=== PATIENT | female | born 1990 | race Caucasian/White ===

== ENCOUNTER 2016-12-18 16:39 | Inpatient (IN) | payer BC, OTHER ==
[~2016-12-18] VITALS: Ht 170.2 cm; Wt 108.9 kg
[~2016-12-18 16:39] MED LIST: CLON0.1T14 PO; DICY20TA28 PO; Gabapentin PO; HYDR-3895 PO; HYDR50CA5 PO; Ibuprofen PO; LITH300T PO
[2016-12-18] MEDS ORDERED: LOPERAMIDE HCL 2 MG CAPSULE PO PRN ×2 (18:15)
[2016-12-18] MEDS ORDERED: ONDANSETRON ODT 4 MG TAB.RAPDIS SL PRN (18:15)
[2016-12-18] MEDS ORDERED: PROMETHAZINE HCL 25 MG/1 ML VIAL IM PRN (18:15)
[2016-12-18] MEDS ORDERED: BUPRENORPHINE HCL 2 MG TAB.SUBL SL PRN (18:15)
[2016-12-18] MEDS ORDERED: diphenhydrAMINE 50 MG CAPSULE PO PRN (18:15)
[2016-12-18] MEDS ORDERED: MAGNESIUM HYDROXIDE 30 ML LIQUID UDC PO PRN (18:15)
[2016-12-18] MEDS ORDERED: MIRALAX 17 GM POWD.PACK PO PRN (18:15)
[2016-12-18] MEDS ORDERED: MAG HYDROX/AL HYDROX/SIMETH 30 ML LIQUID UDC PO PRN (18:15)
[2016-12-18] MEDS ORDERED: LORAZEPAM 1 MG TABLET PO PRN ×2 (18:30)
[2016-12-18] MEDS ORDERED: LORAZEPAM 2 MG/1 ML VIAL IM PRN (18:30)
[2016-12-18] MEDS ORDERED: TRAZ300T2 PO (18:45)
[2016-12-18] MEDS ORDERED: L-NO1TBD18 PO (18:45)
[2016-12-18] MEDS ORDERED: LITH300T3 PO (18:45)
[2016-12-18 18:48] LABS: *URINE HCG, QUAL NEGATIVE (NEGATIVE)
[2016-12-18 19:03] LABS: *AMPHETAMINE, URINE NEGATIVE (NEGATIVE); *BARBITURATE, URINE NEGATIVE (NEGATIVE); *CANNABINOID, URINE POSITIVE (NEGATIVE); *COCCAINE, URINE NEGATIVE (NEGATIVE); *OPIATE, URINE POSITIVE (NEGATIVE); *PHENCYCLIDINE SCREEN,URINE NEGATIVE (NEGATIVE)
[2016-12-18 20:00] VITALS: BP 117/66
--- NOTE | 2016-12-18 20:00 | NUR ---
ADMISSION NOTE Pt arrived to [facility] 3rd floor (accompanied by [facility] staff) at approximately 1830 on 12/18/16. Pt is a 26 y/o female (born on 1990) being admitted for Heroin, Methamphetamines, and Marijuana dependence and use. Pt has allergies to Ceftriaxone and Ondansetron and reported a PMH of bipolar and seizure related to ETOH withdrawal (last year). Pt is unmarried and without children. Pt stated " I live in a sober living. My highest level of education is college, but I don't have a job right now. " Pt was then asked about her substance history including; frequency, amount, route, duration of use, date of last use and amount last used. Pt stated " I've been using Heroin, Meth, and Marijuana for the past 3 weeks. I first started using Heroin 3 years ago. I use needles. I usually inject up to 2 grams a day. The last time I had Heroin was early in the morning (12/18/16). I used about 0.3 grams. I only use Meth occasionally, and it's never a lot. I snort lines, but I don't use needles for that. The last time I had meth was Sunday(12/16/16). I snorted 1 line, which was probably like 1/4 of a gram. I've been smoking marijuana on and off for 12 years. I take a couple of hits from a joint. The last time I smoked was before I came here. I took to hits of the joint and that was it. I also took 3000 mg of Gabapentin today before I came, but I don't abuse that, I just use it to help me detox." Pt was then asked about her treatment history. Pt replied " I was in [facility] for 3 months before that I was in [place] and here." Pt arrived with medication. Noted and reconciled. Upon assessment pt is a/o x 4 with no changes in LOC. Pt is seemingly uncooperative with a flat affect, but can be redirected. Pt's skin is dry and intact with no lesions, bruises, lacerations, rashes or abrasions noted. Pt has multiple facial piercings, but none have any redness, swelling or drainage. Skin turgor indicates adequate hydration. No observable sweat noted. PERRLA noted. Pt's breathing is even and unlabored. No SOB noted or reported. Lung auscultations clear in all lobes. Abdomen is soft and non distended. Bowel sounds present in all four quadrants, however the pt reported having her last bowel movement on 12/15/16. Pt declined any PRN medication for constipation at this time, but was encouraged to increase fluids and notify staff of any changes in condition. Hand forensic anthropologist strong bilaterally. Pt stands at 5 feet 7 inches and weighs in at 240 pounds via standing scale. BP: 117/66 P:75 T:98.6 R:16 Oxygen Sat: 99 % pain: 0/10 COW: 2. MD aware of pt's arrival. All safety measures in place; side rails up x 2 , bed locked and in low position, and call light within reach. Will continue to monitor. Addendum: 12/19/16 at 1954 by SHIKHA SERNA LVN Pt denies having a Primary care physician or psych doctor at this time.
[2016-12-18 20:19] LABS: BASOPHILS # (AUTO) 0.2 K/uL (0.0-0.2); BASOPHILS % (AUTO) 2.2 % (0.0-2.0); EOSINOPHILS # (AUTO) 0.1 K/uL (0.0-0.7); EOSINOPHILS % (AUTO) 0.8 % (0.0-7.0); HEMATOCRIT 41.1 % (37.0-47.0); HEMOGLOBIN 13.6 g/dL (12.0-16.0); MEAN CORPUSCULAR HEMOGLOBIN 28.1 uug (27.0-31.0); MEAN CORPUSCULAR HGB CONC 33 g/dL (32.0-37.0); MEAN CORPUSCULAR VOLUME 85.1 fL (81.0-99.0); MONOCYTES # (AUTO) 0.5 K/uL (0.1-1.30); MONOCYTES % (AUTO) 5.4 % (0.0-11.0); NEUTROPHILS # (AUTO) 6.8 K/uL (1.8-8.9); NEUTROPHILS % (AUTO) 80.6 % (38.5-71.5); PLATELET COUNT (AUTO) 289 K/uL (150-450); RED BLOOD CELL COUNT(AUTO) 4.84 MIL/uL (4.20-5.40); RED CELL DISTRIBUTION WIDTH 11.9 % (11.5-14.5); WHITE BLOOD COUNT (AUTO) 8.6 K/uL (4.0-11.2)
[2016-12-18 20:32] LABS: ETHANOL < 3 MG/DL (0-0)
[2016-12-18 20:33] LABS: ALANINE AMINOTRANSFERASE 23 U/L (14-59); ALBUMIN 3.2 g/dL (3.4-5.0); ALKALINE PHOSPHATASE 45 U/L (50-136); ASPARTATE AMINOTRANSFERASE 21 U/L (15-37); BILIRUBIN,TOTAL 0.6 mg/dL (0.2-1.0); CALCIUM 8.9 mg/dL (8.5-10.1); CARBON DIOXIDE 25 mmol/L (21-32); CHLORIDE 104 mmol/L (98-107); CREATININE 1.1 mg/dL (0.6-1.3); GFR 60 mL/min (>60); GLUCOSE 93 mg/dL (74-106); MAGNESIUM 1.5 mg/dL (1.8-2.4); POTASSIUM 3.7 mmol/L (3.5-5.1); SODIUM SERUM 140 mmol/L (136-145); TOTAL PROTEIN, SERUM 7.1 g/dL (6.4-8.2); UREA NITROGEN, BLOOD 7 mg/dL (7-18)
[2016-12-18 20:55] LABS: HIV-1 p24 ANTIGEN NON REACTIVE (NONREACTIVE); HIV-1/2 ANTIBODY NON REACTIVE (NONREACTIVE)
[2016-12-18] MEDS: GABAPENTIN 300 MG CAPSULE PO SCH (21:00)
[2016-12-18] MEDS ORDERED: MAGNESIUM OXIDE 400 MG TABLET PO ONE (21:15)
[2016-12-18] MEDS: METHOCARBAMOL 750 MG TABLET PO PRN (21:50)
[2016-12-18] MEDS: ACETAMINOPHEN 325 MG TABLET PO PRN (21:50)
--- NOTE | 2016-12-18 21:50 | NUR ---
TYLENOL AND ROBAXIN PRN ADMINISTRATION Pt stated " I'm having generalized body pain and my muscles are super sore. Can I have some Tylenol and Robaxin?" Tylenol 650 mg PO PRN and Robaxin 750 mg PO PRN was given. Pt was encouraged to notify staff of any changes in condition or of any further concerns. Pt verbalized an understanding. All safety measures in place. Will monitor for effectiveness.
--- NOTE | 2016-12-18 22:50 | NUR ---
TYLENOL AND ROBAXIN PRN REASSESSMENT Pt stated " I feel okay." PRNS effective. Pt is encouraged to notify staff of any changes in condition or of any concerns. Pt verbalized an understanding. All safety measures in place. Will continue to monitor.
[2016-12-19] VITALS: BP 128/65
[2016-12-19] MEDS: CLONIDINE HCL 0.1 MG TABLET PO PRN ×2 (00:43→11:11)
[2016-12-19] MEDS: HYDROXYZINE PAMOATE 25 MG CAPSULE PO PRN ×2 (00:43→08:59)
[2016-12-19] MEDS: IBUPROFEN 600 MG TABLET PO PRN ×2 (00:43→08:59)
--- NOTE | 2016-12-19 00:43 | NUR ---
CLONIDINE, MOTRIN, VISTARIL, AND BENADRYL PRN ADMINISTRATION Pt stated " I need something else. I'm sore all over again, and I'm just really kicking." Upon assessment Pt's COW score was 9. Pt was offered PRNS to accommodate current circumstances. With pt's consent Clonidine 0.1 mg PO PRN, Motrin 600 mg PO PRN, Vistaril 50 mg PO PRN, and Benadryl 50 mg PO PRN was given. Pt was encouraged to notify staff of any changes in condition or of any further concerns. Pt verbalized an understanding. All safety measures in place. Will monitor for effectiveness.
--- NOTE | 2016-12-19 01:45 | NUR ---
CLONIDINE, MOTRIN, VISTARIL, AND BENADRYL PRN REASSESSMENT Pt is asleep in bed with no signs of discomfort/distress noted. Pt's breathing is even and unlabored. Respirations are 14 breaths per minute. PRNS effective. All safety measures in place. Will continue to monitor.
[2016-12-19 04:11] VITALS: BP 95/48
[2016-12-19] MEDS: METHOCARBAMOL 750 MG TABLET PO PRN ×2 (06:34→16:50)
--- NOTE | 2016-12-19 06:42 | NUR ---
ROBAXIN PRN ADMINISTRATION Pt stated " Can I some Robaxin. My muscles are sore. Robaxin 750 mg PO PRN was given. Pt was encouraged to notify staff of any changes in condition or of any concerns. Pt verbalized an understanding. All safety measures in place. Will endorse to oncoming nurse.
--- NOTE | 2016-12-19 07:12 | NUR ---
END OF SHIFT NOTE Pt is a 29 y/o female admitted on 12/18/16 for Heroin, Methamphetamines, and Marijuana dependence and use. Pt has an allergy to Ceftriaxone and Ondansetron and reported a PMH of bipolar and seizure (r/t ETOH w/d). Pt is scheduled to start a 3 day Subutex taper today. Pt received Tylenol 650 mg PO PRN, Robaxin 750 mg PO PRN x2 , Motrin 600 mg PO PRN, Vistaril 50 mg PO PRN, Clonidine 0.1 mg PO PRN, and Benadryl 50 mg PO PRN during the shift. Last COW: 2 (0400). Pt slept for a total of 4 hours. All safety measures in place; side rails up x2, bed locked and in low position, and call light within reach. Endorsed to the oncoming nurse.
--- NOTE | 2016-12-19 07:15 | NUR ---
Start of Shift Report from the night nurse: pt is a 26 y.o female here for Heroin 2g IV/d, Marijuana Smoked occasionally, Methamphetamine 0.25g snorted /d; 3 day Subutex taper ordered. Pt is a full code, regular diet, allergic to ceftriaxone, and ondansetron, fall and seizure precautions ordered. HHx: Bipoal and seizure r/t Etoh w/d and multiple relapses. V/S stable. Mag lab is 1.5 with supplement given. Last COWS 2. No new orders or recommendations by the night nurse. Pt is asleep is room. Will cont. to monitor the pt.
[2016-12-19 08:00] VITALS: BP 107/63
[2016-12-19] MEDS: GABAPENTIN 300 MG CAPSULE PO SCH ×3 (08:59→21:15)
[2016-12-19] MEDS: BUPRENORPHINE HCL 2 MG TAB.SUBL SL SCH ×2 (08:59→21:18)
[2016-12-19] MEDS: MULTIVITAMINS,THERAPEUTIC TABLET PO SCH (09:00)
[2016-12-19] MEDS ORDERED: TUBERCULIN,PURIF.PROT.DERIV. 5 TU/0.1 ML TEST ID ONE (09:00)
--- NOTE | 2016-12-19 09:00 | NUR ---
PRN Medication Administration Pt is in room restless in bed and anxious with generalized pain 6/10 and slight MORRELL; PRN Vistaril 50mg and PRN Ibuprofen 600mg given as ordered with 0900 scheduled meds. Will reassess 1H.
--- NOTE | 2016-12-19 10:00 | NUR ---
Reassessment Pt is resting in room watching T.V. with decreased anxiety and denies pain; PRN's Vistaril and Motrin are effective. Will cont. to monitor the pt.
--- NOTE | 2016-12-19 11:10 | NUR ---
PRN administration Pt c/o a headache and chills. Administered tylenol and clonidine per MD order. BP is 117/75 HR 82. Primary nurse to follow up. All other needs addressed at this time.
[2016-12-19] MEDS: ACETAMINOPHEN 325 MG TABLET PO PRN (11:11)
[2016-12-19 12:00] VITALS: BP 109/46
--- NOTE | 2016-12-19 15:08 | NUR ---
New Orders New orders for scheduled [place] & Trazodone and PRN Benadryl.
[2016-12-19] MEDS: PATIENT MAY USE OWN MED- MD OK PO SCH ×2 (15:20→21:18)
[2016-12-19 16:00] VITALS: BP 102/57
[2016-12-19] MEDS: DICYCLOMINE HCL 20 MG TABLET PO PRN (16:50)
--- NOTE | 2016-12-19 16:51 | NUR ---
PRN Medication Administration Pt c/o mild ab pain with muscle tension; PRN Bentyl 20mg and Robaxin 750mg given as ordered. Will reassess in 1H.
--- NOTE | 2016-12-19 19:30 | NUR ---
End of Shift Report to the night nurse: pt is a 26 y.o female here for Heroin 2g IV/d, Marijuana Smoked occasionally, Methamphetamine 0.25g snorted /d; 3 day Subutex taper ordered. Pt is a full code, regular diet, allergic to ceftriaxone, and ondansetron, fall and seizure precautions ordered. HHx: Bipolar and seizure r/t Etoh w/d and multiple relapses. V/S stable. Mag lab is 1.5 with supplement given. PRN Bentyl, Robaxin, Vistaril, Motrin, Clonidine and Tylenol given during my shift. New Orders for [place] trazodone and Benadryl endorsed to the night nurse. Pt attended group therapy today. Last COWS 5.
--- NOTE | 2016-12-19 19:38 | NUR ---
START OF SHIFT NOTE Pt is a 29 y/o female admitted on 12/18/16 for Heroin, Methamphetamines, and Marijuana dependence and use. Pt has an allergy to Ceftriaxone and Ondansetron and reported a PMH of bipolar and seizure (r/t ETOH w/d). Per day shift nurse pt started on 3 day Subutex taper and is tolerating medication well with no s/e or a/r reported. Pt received Tylenol 650 mg PO PRN, Robaxin 750 mg PO PRN , Motrin 600 mg PO PRN, Vistaril 50 mg PO PRN, Clonidine 0.1 mg PO PRN, and Bentyl 20 mg PO PRN during the day shift. Last COW: 5 (1600). At this time pt is calm, cooperative and compliant with plan of care. Pt denies any pain/discomfort at this time. Pt is encouraged to notify staff of any changes in condition or of any concerns. Pt verbalized an understanding. All safety measures in place; side rails up x2, bed locked and in low position, and call light within reach. Will continue to monitor.
[2016-12-19 20:00] VITALS: BP 106/50
[2016-12-19] MEDS ORDERED: LITHIUM CARBONATE 300 MG TABLET.SA PO SCH (21:00)
[2016-12-19] MEDS: TRAZODONE 100 MG TABLET PO SCH (21:15)
[2016-12-20] VITALS: BP 112/60
[2016-12-20] MEDS: DICYCLOMINE HCL 20 MG TABLET PO PRN ×2 (00:03→09:44)
[2016-12-20] MEDS: ACETAMINOPHEN 325 MG TABLET PO PRN ×5 (00:03→23:11)
--- NOTE | 2016-12-20 00:03 | NUR ---
TYLENOL AND BENTYL PRN ADMINISTRATION Pt stated " My stomach is cramping and I have a 5/10 headache. Can I have some Tylenol and Bentyl?" Tylenol 650 mg PO PRN and Bentyl was given. Pt was encouraged to notify staff of any changes in condition or of any further concerns Pt verbalized an understanding. All safety measures in place. Will monitor for effectiveness.
--- NOTE | 2016-12-20 01:00 | NUR ---
TYLENOL AND BENTYL PRN REASSESSMENT Pt stated " My head feels better. It wasn't that bad to begin with, but the Tylenol helped. My stomach feels better too." PRNS effective. Pt was encouraged to notify staff of any changes in condition or of any concerns. Pt verbalized an understanding. All safety measures in place. Will continue to monitor.
[2016-12-20] MEDS: HYDROXYZINE PAMOATE 25 MG CAPSULE PO PRN (02:05)
--- NOTE | 2016-12-20 02:05 | NUR ---
VISTARIL PRN ADMINISTRATION Pt stated " I'm feeling a little anxious and I think that's keeping me up." Vistaril 100 mg PO PRN was given. Pt was encouraged to notify staff of any changes in condition or of any further concerns. Pt verbalized an understanding. All safety measures in place. Will monitor for effectiveness.
--- NOTE | 2016-12-20 03:00 | NUR ---
VISTARIL PRN ADMINISTRATION Pt is asleep in bed with no signs of distress/discomfort noted. Pt's breathing is even and unlabored. Respirations are 14 breaths per minute. PRN effective. All safety measures in place. Will continue to monitor. Addendum: 12/20/16 at 0441 by SHIKHA SERNA LVN REASSESSMENT
--- NOTE | 2016-12-20 04:00 | NUR ---
COW AND VITALS REFUSED Pt refused to be assessed and have vitals taken at this time. Pt was encouraged x 3 with risks and benefits explained, but the client still declined. All safety measures in place. Will continue to monitor. Addendum: 12/20/16 at 0528 by SHIKHA SERNA LVN Amended: Links added.
--- NOTE | 2016-12-20 07:10 | NUR ---
Start of of the Shift Report from the night night nurse: pt is 26 year old new re-admit here for Heroin 0.5g/d smoked for 1 week with the last use last night at midnight and Xanax 6-8mg PO/d for 1 week; PRN Subutex and Ativan only. 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 PRN Ativan with CIWA 5, Tylenol and Trazodone given. V/S stable. Skin is intact. No hallucinations, delusions or suicidal ideations present. Pt did not attend group. TSH is elevated and is aware. Endorsed to night nurse to f/u with pt instructions and seizure precautions. Last COWS 7 CIWA 5.
--- NOTE | 2016-12-20 07:27 | NUR ---
END OF SHIFT NOTE Pt is a 29 y/o female admitted on 12/18/16 for Heroin, Methamphetamines, and Marijuana dependence and use. Pt has an allergy to Ceftriaxone and Ondansetron and reported a PMH of bipolar and seizure (r/t ETOH w/d). Pt continues on a 3 day Subutex taper today. Pt received Tylenol 650 mg PO PRN, Vistaril 100 mg PO PRN, and Bentyl 20 mg PO PRN during the shift. Last COW: 2 (0000). Pt slept for a total of 5 hours. All safety measures in place; side rails up x2, bed locked and in low position, and call light within reach. Endorsed to the oncoming nurse.
--- NOTE | 2016-12-20 07:30 | NUR ---
Start of Shift Report from the night night nurse: pt is 26 year old new re-admit here for Heroin 0.5g/d smoked for 1 week with the last use last night at midnight and Xanax 6-8mg PO/d for 1 week; PRN Subutex and Ativan only. 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 PRN Tylenol, Benadryl, and Vistaril given. V/S stable. Skin is intact. No hallucinations, delusions or suicidal ideations present. Last COWS 2.
[2016-12-20 08:00] VITALS: BP 109/60
[2016-12-20] MEDS: BUPRENORPHINE HCL 2 MG TAB.SUBL SL SCH ×3 (09:44→20:58)
[2016-12-20] MEDS: MULTIVITAMINS,THERAPEUTIC TABLET PO SCH (09:44)
[2016-12-20] MEDS: METHOCARBAMOL 750 MG TABLET PO PRN (09:44)
[2016-12-20] MEDS: GABAPENTIN 300 MG CAPSULE PO SCH ×3 (09:44→20:58)
[2016-12-20] MEDS: PROMETHAZINE HCL 25 MG TABLET PO PRN (09:44)
[2016-12-20 12:00] VITALS: BP 108/60
[2016-12-20] MEDS ORDERED: GUAIFENESIN LA 600 MG TABLET.SA PO PRN (12:15)
--- NOTE | 2016-12-20 12:15 | NUR ---
PRN Medication Administration Pt c/o Nausea, MORRELL, Muscle tension and Ab cramps; PRN Promethazine 25mg, Tylenol 650mg PO, Bentyl 20mg PO and Robaxin 750mg PO given as ordered. Will reassess in 1H. Will cont. to monitor the pt.
--- NOTE | 2016-12-20 13:10 | NUR ---
Reassessment Pt is in room taking a nap; no verbal or nonverbal s/sx of nausea, MORRELL, ab discomfort or muscle tension present. Will cont. to monitor the pt.
[2016-12-20 15:09] LABS: HCV AB <0.1 s/co ratio (0.0-0.9); HEPATITIS B CORE AB, IgM Negative (Negative); HEPATITIS B SURFACE AG Negative (Negative)
[2016-12-20 16:00] VITALS: BP 116/54
--- NOTE | 2016-12-20 16:57 | NUR ---
PRN Medication Administration, New Orders New orders for PRN Mucinex 600mg PO tid since pt c/o productive coughing, scheduled Clonidine 0.1mg and New orders from Dr. Baugh for [place] titration 12/21 at 0700am.
[2016-12-20] MEDS: DICYCLOMINE HCL 20 MG TABLET PO SCH ×2 (17:35→20:59)
[2016-12-20] MEDS: CLONIDINE HCL 0.1 MG TABLET PO SCH ×2 (17:35→21:01)
--- NOTE | 2016-12-20 17:40 | NUR ---
New Orders-R/O Active TB Notified of pt's Left FA PPD induration with the PPD done yesterday as ordered, Pt c/o productive coughing, no blood noted although pt was eating a red colored food which discolored the sputum with red gravel residual, Temperature 99.1, pt denies chest pain, yet c/o LUQ discomfort and states that she is dx'd with Pancreatitis. I notified Dr. Matthews and new orders for Physician Consult re: "determination of need for transfer to negative pressure to r/o active TB" with "Expectations: cough, induration on PPD, history of IV drug use", CXR STAT and Resp. Sputum Culture with Gram Stain. PRN Mucinex 600mg, Tylenol 650mg given as orders. Will reassess in 30 minutes to 1H.
--- NOTE | 2016-12-20 17:53 | NUR ---
Late Medication Administration Pt was asleep in room during 1500H medication so meds HELD until pt awake for dinner. Pt c/o recurrent MORRELL; PRN Tylenol 650mg given PRN as ordered. Will reassess in 1H.
--- NOTE | 2016-12-20 19:33 | NUR ---
Reassessment Pt is confined to room and relaxing, denies MORRELL, no chest pain and decreased coughing; Mucinex & Tylenol are effective. Will endorse to night nurse pt's condition.
--- NOTE | 2016-12-20 19:46 | NUR ---
End of the Shift Report to the night night nurse: pt is 26 year old new re-admit here for Heroin 0.5g/d smoked for 1 week with the last use last night at midnight and Xanax 6-8mg PO/d for 1 week; PRN Subutex and Ativan only. 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 PRN Subutex with COWS 12, Ativan 1mg with CIWA 7, & PRN Motrin given as ordered. V/S stable. Skin is intact. No hallucinations, delusions or suicidal ideations present. Pt did not attend group. . Endorsed to night nurse to f/u with CXR since pt is getting D/C'd tomorrow with PPD done yesterday and UDS obtained. Last COWS 3 CIWA 2. Addendum: 12/20/16 at 2001 by JEN JUAN RN ERROR WRONG PATIENT
[2016-12-20 20:00] VITALS: BP 111/59
--- NOTE | 2016-12-20 20:00 | NUR ---
Start of Shift Patient is a 26-year old, female, admitted for Opiate Dependence. Prior to admission, pt reports using 1.5-2 grams of tar heroin via intravenous injection on a daily basis. Pt also reports using meth salts and cannabis intermittently. Placed on 3-day Subutex taper, started 12/19/2016, and tolerating well. With PMHx of Knee Surgery and Foot surgery 3-5 years ago, Depression, Anxiety, Chronic back pain r/t being born with disc d/o, Seizure 3-4 yrs ago r/t Benzo withdrawal and Bipolar Disorder. Pt is AAOx4, with slight anxiety noted and with no skin issues. No hallucinations, delusions or suicidal ideations present. Pt is ambulatory with steady gait. Seen by En[facility] PACHECO of Infectious Disease. Per COMMODITY BUYER, induration of TB test is most likely negative, will wait for CXR result. Started on Levaquin 500mg PO Q24h, to start tonight. Fall, universal and safety prec in place. All needs met. Call light within reach. Kept pt warm, dry and comfortable. Latest COWS=4. Will continue to monitor pt.
--- NOTE | 2016-12-20 20:15 | NUR ---
RN note MD Communication Pt refused [place] 900 mg PO scheduled for tonight. Per pt, she feels "fatigue and tired" when taking the medication. Informed Dr. Baugh. Per MD, re-schedule [place] for tomorrow at 2100 and MD will talk to the pt in the morning. Patient and pharmacy made aware.
[2016-12-20] MEDS: TRAZODONE 100 MG TABLET PO SCH (20:59)
[2016-12-20] MEDS: LEVOFLOXACIN 500 MG TABLET PO SCH (21:12)
[2016-12-20] MEDS: PATIENT MAY USE OWN MED- MD OK PO SCH (21:12)
--- NOTE | 2016-12-20 23:11 | NUR ---
RN note PRN Tylenol Pt c/o headache=02/14. Asks for Tylenol. Administered Tylenol 650 mg PO. No SOB noted. Will monitor and reassess.
[2016-12-21] VITALS: BP 107/58
[2016-12-21] MEDS: METHOCARBAMOL 750 MG TABLET PO PRN ×3 (00:13→20:49)
--- NOTE | 2016-12-21 00:13 | NUR ---
RN note PRN Robaxin Pt verbalized relief from headache, with pain level=2/10. Pt, however, c/o generalized muscle pain=6/10. Administered Robaxin 750 mg PO. No SOB noted. Will monitor and reassess.
--- NOTE | 2016-12-21 01:15 | NUR ---
RN note reassess Pt asleep on bed, no facial grimacing nor SOB noted. Will continue to monitor pt.
[2016-12-21] MEDS: PROMETHAZINE HCL 25 MG TABLET PO PRN (03:59)
[2016-12-21 04:00] VITALS: BP 109/55
--- NOTE | 2016-12-21 04:00 | NUR ---
RN note Promethazine Pt c/o feeling nauseous. Administered Promethazine 25 mg PO. No SOB noted. Will monitor and reassess.
[2016-12-21] MEDS: ACETAMINOPHEN 325 MG TABLET PO PRN ×2 (05:25→21:53)
--- NOTE | 2016-12-21 05:25 | NUR ---
RN note PRN Tylenol Pt with no c/o nausea. Pt c/o feeling warm, temp checked=99.1. Administered Tylenol 650 mg PO. No SOB noted. Will monitor and reassess.
--- NOTE | 2016-12-21 06:30 | NUR ---
RN note reassess Pt verbalized feeling "better". Temp rechecked=98.7. No SOB noted. Will closely monitor.
--- NOTE | 2016-12-21 07:07 | NUR ---
End of Shift Patient is a 26-year old, female, admitted for Opiate Dependence. Prior to admission, pt reports using 1.5-2 grams of tar heroin via intravenous injection on a daily basis. Pt also reports using meth salts and cannabis intermittently. Placed on 3-day Subutex taper, started 12/19/2016, and tolerating well. With PMHx of Knee Surgery and Foot surgery 3-5 years ago, Depression, Anxiety, Chronic back pain r/t being born with disc d/o, Seizure 3-4 yrs ago r/t Benzo withdrawal and Bipolar Disorder. Pt is AAOx4, with slight anxiety noted and with no skin issues. No hallucinations, delusions or suicidal ideations present. Pt is ambulatory with steady gait. Seen by Enmanuel PERCUSSION INSTRUCTOR of Infectious Disease. Per PERCUSSION INSTRUCTOR, induration of TB test is most likely negative, will wait for CXR result. Started on Levaquin 500mg PO Q24h, to start tonight. Fall, universal and safety prec in place. All needs met. Call light within reach. Kept pt warm, dry and comfortable. Latest COWS=6, slept for 4 hours. Endorsed to AM shift nurse for continuity of care.
--- NOTE | 2016-12-21 07:30 | NUR ---
START OF SHIFT Pt 26 y/o female admitted for heroin, methamphetamine, and marijuana dependence/ use. Pt received in room with eyes closed resting, but easily arousable to name. Pt alert and oriented to name, place, and time. [place]. Skin warm and slightly moist to touch. Respirations even unlabored. It was reported that pt slept for 4 hours last night. Bed on lowest position with side rails x2 up for safety. Call light within reach. No distress noted.
[2016-12-21 08:00] VITALS: BP 116/88
[2016-12-21] MEDS ORDERED: BUPRENORPHINE HCL 2 MG TAB.SUBL SL SCH (09:00)
[2016-12-21] MEDS: GABAPENTIN 300 MG CAPSULE PO SCH ×3 (09:07→20:49)
[2016-12-21] MEDS: DICYCLOMINE HCL 20 MG TABLET PO SCH ×3 (09:07→20:49)
[2016-12-21] MEDS: CLONIDINE HCL 0.1 MG TABLET PO SCH ×2 (09:07→15:00)
[2016-12-21] MEDS: MULTIVITAMINS,THERAPEUTIC TABLET PO SCH (09:07)
[2016-12-21 12:00] VITALS: BP 100/62
[2016-12-21 16:00] VITALS: BP 110/65
[2016-12-21] MEDS: BUPRENORPHINE HCL 2 MG TAB.SUBL SL SCH ×2 (16:10→20:49)
--- NOTE | 2016-12-21 16:10 | NUR ---
PRN Pt with c/o body aches 03/17. Robaxin po prn per MD given and tolerated well.
[2016-12-21] MEDS ORDERED: CLONIDINE HCL 0.1 MG TABLET PO PRN (16:30)
--- NOTE | 2016-12-21 19:30 | NUR ---
END OF SHIFT Pt 26 y/o female admitted for heroin, methamphetamine, and marijuana dependence/ use. Pt alert and oriented to name, place, and time. Perrla. Skin warm and slightly moist to touch. Respirations even unlabored. Pt observed isolative to room throughout the day. Pt did not attend group activity. Pt medication compliant and tolerated well. No ASE noted. Bed on lowest position with side rails x2 up for safety. Call light within reach. No distress noted.
--- NOTE | 2016-12-21 19:45 | NUR ---
START OF SHIFT NOTE Received report from day shift nurse. Pt is 26 y o female, admitted on 12/18/16 for heroin (2 grams daily for 3 wks), methamphetamine (1/4 g occasionally for 3 wks), and marijuana (1 joint intermittently for 3 wks) dependence. Pt was originally placed on 3 day Subutex taper started 12/19/16; today, taper was extended per Dr Matthews d/t severity of withdrawal s/s. Pt is to complete taper on 12/23/15. Pt in room, aaox4. Pt reports chills, stomach cramps, anxiety, bone aches 6/10, runny nose. Skin warm intact, with mild sweats noted. No tremors noted. Lung sounds clear bilat, noted productive cough with whitish-yellow thin mucus, heart rate regular. Pt encouraged to increase PO fluids intake and to use deep breathing/ coughing along with frequent ambulation as tolerated to liquify and move secretions. Las BM 12/21/16, pt denies n/v/d. Pt denies urinary difficulties. PMH of bipolar and withdrawal seizures. Pt full code, regular diet, allergic to Zofran and Ceftriaxone. Pt was diagnosed with left lower lobe pneumonia, is on PO Levaquin 500mg daily.
[2016-12-21 20:01] VITALS: BP 110/61
[2016-12-21] MEDS: LEVOFLOXACIN 500 MG TABLET PO SCH (20:49)
--- NOTE | 2016-12-21 20:49 | NUR ---
PRN ROBAXIN Pt c/o body aches 03/17 r/t withdrawal. Administered Robaxin 750 mg PO prn . Fall and seizure precautions in place
[2016-12-21] MEDS: LITHIUM CARBONATE 300 MG TABLET.SA PO SCH (20:51)
[2016-12-21] MEDS: PATIENT MAY USE OWN MED- MD OK PO SCH (20:51)
[2016-12-21] MEDS ORDERED: LITHIUM CARBONATE 300 MG TABLET.SA PO SCH ×2 (21:00)
[2016-12-21] MEDS: TRAZODONE 100 MG TABLET PO SCH (21:53)
--- NOTE | 2016-12-21 21:53 | NUR ---
REASSESSMENT AND PRN TYLENOL; Pt states body aches decrease to 4/10, administered Tylenol prn PO 650 mg for pain. Will continue to monitor
[2016-12-21] MEDS: HYDROXYZINE PAMOATE 25 MG CAPSULE PO PRN (22:55)
--- NOTE | 2016-12-21 22:55 | NUR ---
REASSESSMENT AND PRN VISTARIL Pt states pain subsided. C/o anxiety, skin with minimal sweats, no tremors noted, denies stomach cramps; BP 105/54, HR 81, COWS score 3. Administered Vistaril 100 mg PO prn for anxiety, as ordered. Fall and seizure precautions in place, will continue to monitor
--- NOTE | 2016-12-21 23:45 | NUR ---
REASSESSMENT Pt states anxiety subsides. All needs met. Pt in bed in semi camacho, side rails up x 2, bed locked in lowest position, call light within reach.
[2016-12-22] VITALS: BP 110/57
[2016-12-22] MEDS: IBUPROFEN 600 MG TABLET PO PRN ×2 (00:41→17:02)
[2016-12-22] MEDS: PROMETHAZINE HCL 25 MG TABLET PO PRN (00:50)
--- NOTE | 2016-12-22 00:50 | NUR ---
PRN MOTRIN AND PHENERGAN Pt called, c/o headache 310 and slight nausea; no emesis present. Administered Motrin 600 mg PO prn and Phenergan 25 mg PO prn as ordered. Fall and seizure precautions in place, will continue to monitor
--- NOTE | 2016-12-22 01:30 | NUR ---
REASSESSMENT Pt sleeping soundly, RR 15, unlabored. Will continue to monitor
--- NOTE | 2016-12-22 04:00 | NUR ---
VS, COWS Pt sleeping soundly. Per previous request, VS and COWS assessment deferred. RR even and unlabored at 16 breaths per minute. Fall and seizure precautions in place Addendum: 12/22/16 at 0453 by NOELLE HARO RN Amended: Links added.
--- NOTE | 2016-12-22 07:43 | NUR ---
END OF SHIFT NOTE Pt is 26 y o female, admitted on 12/18/16 for heroin (2 grams daily for 3 wks), methamphetamine (1/4 g occasionally for 3 wks), and marijuana (1 joint intermittently for 3 wks) dependence. Pt was originally placed on 3 day Subutex taper started 12/19/16; today, taper was extended per Dr Matthews d/t severity of withdrawal s/s. Pt is to complete taper on 12/23/15. Pt presented with withdrawal s/s of anxiety, body aches, stomach cramps, nausea, sweating, chills. Pt received prn medications as documented in separate entries; last OWS was 6 at 0000; VSS. Pt slept for 3 hrs; PO intake 1500 ml, urination x 1. PMH of bipolar and withdrawal seizures. Pt full code, regular diet, allergic to Zofran and Ceftriaxone. Pt was diagnosed with left lower lobe pneumonia, is on PO Levaquin 500mg daily. Pt on fall and seizure precautions. Report endorsed to day shift nurse.
--- NOTE | 2016-12-22 07:49 | NUR ---
START OF SHIFT Pt 26 y/o female admitted for heroin, methamphetamine, and marijuana dependence / use. Pt received in room on bed with eyes closed resting, but easily arousable to name. Pt alert and oriented to name, place, and time. Respirations even and unlabored. Skin warm and slightly moist to touch. Bilateral hand tremors slightly noted. It was reported that pt slept for 3 hours last night. Bed on lowest position with side rails x2 up for safety. Call light within reach. No distress noted at this time.
[2016-12-22 08:00] VITALS: BP 100/58
[2016-12-22] MEDS ORDERED: BUPRENORPHINE HCL 2 MG TAB.SUBL SL SCH (09:00)
[2016-12-22] MEDS: GABAPENTIN 300 MG CAPSULE PO SCH ×3 (09:54→20:43)
[2016-12-22] MEDS: DICYCLOMINE HCL 20 MG TABLET PO SCH ×3 (09:54→20:43)
[2016-12-22] MEDS: MULTIVITAMINS,THERAPEUTIC TABLET PO SCH (09:55)
[2016-12-22] MEDS: METHOCARBAMOL 750 MG TABLET PO PRN (09:58)
--- NOTE | 2016-12-22 09:58 | NUR ---
PRN Pt with c/o body aches 03/17. Robaxin po prn per md order given and tolerated well.
[2016-12-22 12:00] VITALS: BP 100/46
[2016-12-22 12:30] VITALS: BP 106/64
[2016-12-22] MEDS ORDERED: FLUTICASONE PROP NASAL SPRAY 16 GM BOTTLE NS PRN (13:30)
[2016-12-22] MEDS: ACETAMINOPHEN 325 MG TABLET PO PRN (15:10)
--- NOTE | 2016-12-22 15:10 | NUR ---
PRN Pt with c/o headache 02/14. tylenol po prn per md order given and tolerated well.
[2016-12-22 16:00] VITALS: BP 120/65
--- NOTE | 2016-12-22 17:02 | NUR ---
PRN Pt with c/o anxiety. Catapres po prn per MD order given and tolerated well.
--- NOTE | 2016-12-22 17:02 | NUR ---
PRN Pt with c/o headache 01/15. Motrin po prn per md order given and tolerated well.
[2016-12-22 17:30] LABS: *AMPHETAMINE, URINE NEGATIVE (NEGATIVE); *BARBITURATE, URINE NEGATIVE (NEGATIVE); *CANNABINOID, URINE NEGATIVE (NEGATIVE); *COCCAINE, URINE NEGATIVE (NEGATIVE); *OPIATE, URINE NEGATIVE (NEGATIVE); *PHENCYCLIDINE SCREEN,URINE NEGATIVE (NEGATIVE)
--- NOTE | 2016-12-22 18:43 | NUR ---
END OF SHIFT Pt 26 y/o female admitted for heroin, methamphetamine, and marijuana dependence/ use. Pt alert and oriented to name, place, and time. Perrla. Skin warm and slightly moist to touch. Respirations even unlabored. Pt observed isolative to room throughout the day. Pt is scheduled for discharge tomorrow. Pt did not attend group activity. Pt medication compliant and tolerated well. No ASE noted. Bed on lowest position with side rails x2 up for safety. Call light within reach. No distress noted.
--- NOTE | 2016-12-22 19:30 | NUR ---
START OF SHIFT NOTE Received report from day shift nurse. Pt is 26 y o female, admitted on 12/18/16 for heroin (2 grams daily for 3 wks), methamphetamine (1/4 g occasionally for 3 wks), and marijuana (1 joint intermittently for 3 wks) dependence. Pt has completed Subutex taper started on 12/19/16; pt scheduled for discharge on 12/23/16. Pt in room, aaox4. Pt reports chills, mild anxiety. Skin warm intact, with mild sweats noted. No tremors noted. Pt was diagnosed with left lower lobe pneumonia, is on PO Levaquin 500mg daily. Lung sounds clear bilat, pt denies cough, heart rate regular. Pt encouraged keep PO fluids intake and to use deep breathing/ coughing along with frequent ambulation as tolerated. Last BM 12/22/16, pt denies n/v/d. Pt denies urinary difficulties. PMH of bipolar and withdrawal seizures. Pt full code, regular diet, allergic to Zofran and Ceftriaxone. Pt is on fall and seizure precautions. Side rails up x 2, bed locked in lowest position, call light within reach. Will continue with plan of care.
[2016-12-22 20:00] VITALS: BP 93/50
[2016-12-22] MEDS: LEVOFLOXACIN 500 MG TABLET PO SCH (20:43)
[2016-12-22] MEDS: TRAZODONE 100 MG TABLET PO SCH (20:43)
[2016-12-22] MEDS: PATIENT MAY USE OWN MED- MD OK PO SCH (20:43)
[2016-12-22] MEDS: LITHIUM CARBONATE 300 MG TABLET.SA PO SCH (20:43)
--- NOTE | 2016-12-23 | NUR ---
VS, COWS, Pt refused VS assessment, states "Please let me sleep". RR even and unlabored, at 15 breaths per minute. Risks and benefits explained, pt still refused. COWS deferred d/t pt being asleep. Side rails up x2, call light within reach, bed locked in lowest position. Will continue to monitor Addendum: 12/23/16 at 0449 by NOELLE HARO RN Amended: Links added.
[2016-12-23] MEDS ORDERED: LEVO500T15 PO (00:12)
[2016-12-23] MEDS ORDERED: HYDR-3895 PO (00:12)
--- NOTE | 2016-12-23 03:00 | NUR ---
PRN VISTARIL, MOTRIN, ROBAXIN Pt. complains of increased body ache and muscle spasm, anxiety. PRN VISTARIL, MOTRIN, ROBAXIN given as ordered. Safety measures in place : bed on lowest position with side rails x2 up for safety, call light within reach. Will continue to monitor closely and offer help.
[2016-12-23] MEDS: HYDROXYZINE PAMOATE 25 MG CAPSULE PO PRN (03:10)
[2016-12-23] MEDS: METHOCARBAMOL 750 MG TABLET PO PRN (03:10)
[2016-12-23] MEDS: IBUPROFEN 600 MG TABLET PO PRN (03:11)
--- NOTE | 2016-12-23 03:45 | NUR ---
REASSESSMENT Pt asleep soundly. RR unlabored. Fall and seizure precautions in place. Will continue to monitor
--- NOTE | 2016-12-23 04:00 | NUR ---
VS, COWS Pt refused VS assessment, states "Please let me sleep". RR even and unlabored, at 16 breaths per minute. Risks and benefits explained, pt still refused.COWS deferred d/t pt being asleep. Side rails up x2, call light within reach, bed locked in lowest position. Will continue to monitor Addendum: 12/23/16 at 0449 by NOELLE HARO RN Amended: Links added.
--- NOTE | 2016-12-23 07:30 | NUR ---
start of shift note: received pt from assembler 1st shift nurse pt is in stable condition at this time no s/s of pain or discomfort. pt is admitted to [facility] for opiate/marijuana and meth. pt is set for discharge today. will assist pt in discharging and will continue to monitor pt for any changes.
--- NOTE | 2016-12-23 07:46 | NUR ---
END OF SHIFT NOTE Pt is 26 y o female, admitted on 12/18/16 for heroin (2 grams daily for 3 wks), methamphetamine (1/4 g occasionally for 3 wks), and marijuana (1 joint intermittently for 3 wks) dependence. Pt has completed Subutex taper started on 12/19/16; pt scheduled for discharge on 12/23/16. UDS collected and resulted, discharge orders in chart. Pt reported mild anxiety and chills, last COWS = 3. PRN Vistaril, Robaxin and Motrin were given at 0300, medications were effective. Pt slept for 4 hrs; PO intake 1498 ml, urination x 3. PMH of bipolar and withdrawal seizures. H of pneumonia, pt on PO levaquin, throughout the shift, lung sounds clear, no cough noted. Pt in bed, resting, RR unlabored. Fall/ seizure precautions in place. Report endorsed to day shift nurse.
[2016-12-23] MEDS: MULTIVITAMINS,THERAPEUTIC TABLET PO SCH (09:07)
[2016-12-23] MEDS: DICYCLOMINE HCL 20 MG TABLET PO SCH (09:07)
[2016-12-23] MEDS: GABAPENTIN 300 MG CAPSULE PO SCH (09:07)
--- NOTE | 2016-12-23 09:36 | NUR ---
discharge note: pt left the unit in stable condition no s/s of pain or discomfort, or any withdrawal symptoms. pt tolerated taper well. last cows is 1. pt teaching administered and pt verbalized understanding. pt left with all personal belongings. pt was transferred to [facility] via private car
== END 2016-12-23 09:35 | disposition other institution (70) | DRG 895 ==
LOC: SRC 18:05
PROVIDERS: ADMIT Internal Medicine; ATTEND Internal Medicine
PROC: HZ2ZZZZ Detoxification Services for Substance Abuse Treatment (ICD-10-PCS; principal; 2016-12-18)
PROC: HZ51ZZZ Individual Psychotherapy for Substance Abuse Treatment, Behavioral (ICD-10-PCS; 2016-12-21)
DX: F11.23 Opioid dependence with withdrawal (principal); J18.9 Pneumonia, unspecified organism; F31.63 Bipolar disorder, current episode mixed, severe, without psychotic features; G47.00 Insomnia, unspecified; Z59.1 Inadequate housing; F17.210 Nicotine dependence, cigarettes, uncomplicated; F10.21 Alcohol dependence, in remission; F15.10 Other stimulant abuse, uncomplicated; Z81.1 Family history of alcohol abuse and dependence; Z81.4 Family history of other substance abuse and dependence; E66.01 Morbid (severe) obesity due to excess calories; Z68.37 Body mass index [BMI] 37.0-37.9, adult; Z88.1 Allergy status to other antibiotic agents; J20.9 Acute bronchitis, unspecified; F41.9 Anxiety disorder, unspecified; F12.90 Cannabis use, unspecified, uncomplicated; E88.09 Other disorders of plasma-protein metabolism, not elsewhere classified; E83.42 Hypomagnesemia; K59.03 Drug induced constipation
CPT/HCPCS: 36415; 70030-TC; 71010; 80307; 83735; 84703; 85025; 86580; 86592; 86705; 86803; 87070; 87340; 87806; A4663; G6040-TC; J3535; J8499; Q0163; Q0169

== ENCOUNTER 2017-04-25 10:41 | Inpatient (IN) | payer BC, OTHER ==
[~2017-04-25] VITALS: Ht 167.6 cm; Wt 104.3 kg
[~2017-04-25 10:41] MED LIST changes: -HYDR50CA5 PO; +L-NO1TBD18 PO; +LEVO500T2 PO; +TRAZ300T2 PO
--- NOTE | 2017-04-28 10:50 | NUR ---
INTAKE INTERVIEW Patient alert and orientated X 4 and in stable condition. Patient is able to walk with no issues. Vital signs stable. Patient is allergic to Rocephin and Zofran, patient states she has no history of seizures. All home medications were taken, charted, and handled properly. All rules have been explained. All safety measures in place. Will continue to assess and monitor patient once she get to unit.
[2017-04-28 11:04] LABS: *URINE HCG, QUAL NEGATIVE (NEGATIVE)
[2017-04-28 11:17] LABS: *AMPHETAMINE, URINE POSITIVE (NEGATIVE); *BARBITURATE, URINE NEGATIVE (NEGATIVE); *CANNABINOID, URINE POSITIVE (NEGATIVE); *COCCAINE, URINE NEGATIVE (NEGATIVE); *OPIATE, URINE POSITIVE (NEGATIVE); *PHENCYCLIDINE SCREEN,URINE NEGATIVE (NEGATIVE)
[2017-04-28] MEDS ORDERED: HYDR-3028 PO (11:23)
[2017-04-28] MEDS ORDERED: L-NO1TBD18 PO (11:23)
[2017-04-28] MEDS ORDERED: QUET300T2 PO (11:23)
[2017-04-28] MEDS ORDERED: GABA800T2 PO (11:23)
[2017-04-28] MEDS ORDERED: ONDANSETRON ODT 4 MG TAB.RAPDIS SL PRN (11:30)
[2017-04-28] MEDS ORDERED: LOPERAMIDE HCL 2 MG CAPSULE PO PRN ×2 (11:30)
[2017-04-28] MEDS ORDERED: ACETAMINOPHEN 325 MG TABLET PO PRN (11:30)
[2017-04-28] MEDS ORDERED: MIRALAX 17 GM POWD.PACK PO PRN (11:30)
[2017-04-28] MEDS ORDERED: DICYCLOMINE HCL 20 MG TABLET PO PRN (11:30)
[2017-04-28] MEDS ORDERED: DIAZEPAM 5 MG TABLET PO PRN (11:30)
[2017-04-28] MEDS ORDERED: THIAMINE HCL 200 MG/2 ML VIAL IM ONE (11:30)
[2017-04-28] MEDS ORDERED: LORAZEPAM 2 MG/1 ML VIAL IM PRN (11:30)
[2017-04-28] MEDS ORDERED: ONDANSETRON 4 MG/2 ML VIAL IM PRN (11:30)
[2017-04-28] MEDS ORDERED: MAGNESIUM HYDROXIDE 30 ML LIQUID UDC PO PRN (11:30)
[2017-04-28] MEDS ORDERED: MAG HYDROX/AL HYDROX/SIMETH 30 ML LIQUID UDC PO PRN (11:30)
[2017-04-28] MEDS ORDERED: diphenhydrAMINE 50 MG CAPSULE PO PRN (11:30)
[2017-04-28] MEDS ORDERED: DIAZEPAM 10 MG TABLET PO PRN ×2 (11:30)
--- NOTE | 2017-04-28 11:30 | NUR ---
ADMISSION NOTE VS: BP 140/81 P 90 TEMP 96.0 R 18 O2 99% HEIGHT 5'6" WEIGHT ALLERGIES: ROCEPHIN AND ZOFRAN Patient is a 26 year old female admitted to [facility] on 04/28/17 at 1100. Patient is under the care of Dr. Nickerson for opiate and benzo dependence. Patient denies suicidal and homicidal [id number] at this time. Patient denies being hospitalized in the past 30 days. Patient denies chest pain and SOB. patient reports using hydralazine 50mg, Gabapentin 800mg, Seroquel 300 mg and Ashlyna. Upon admission patients skin is intact with 3 abscess; Left and right arm and right leg. Pictures were taken and documented. Patient is a full code, vital signs WNL, regular diet. Patient denies having a history of seizures. Patient denies having a PCP. Breathing is even and unlabored. SpO2 is 99% on room air. Patient ambulated with a steady gain, patient reports body feeling achy. Patient reports being a patient at [facility] [place] [facility] in September 2016 and december of 2016.Patient reports living with her boyfriend. Hx of anxiety, insomnia, and bipolar. Patient reports smoking a pack of cigarettes a day. Dr. Nickerson has been notified and has seen the patient. All needs have been met. Patient has been orientated to the unit. All safety measures in place per hospital policy. Bed is in lowest position, side rails up X2 and locked, call light within reach. Will continue to monitor. SUBSTANCE ABUSE xananx 10/15 mg daily for 11 years Herion 1.5/2g daily IV for 10 years meth occasionally smoked for 10 years
[2017-04-28] MEDS ORDERED: BUPRENORPHINE HCL 2 MG TAB.SUBL SL PRN (11:45)
[2017-04-28 12:00] VITALS: BP 132/75
[2017-04-28] MEDS: DIAZEPAM 10 MG TABLET PO SCH ×4 (13:14→21:52)
[2017-04-28] MEDS: SULFAMETH/TRIMETH 800/160 MG TABLET PO SCH ×2 (13:14→21:52)
[2017-04-28 14:00] LABS: ALANINE AMINOTRANSFERASE 104 U/L (14-59); ALKALINE PHOSPHATASE 66 U/L (50-136); ASPARTATE AMINOTRANSFERASE 41 U/L (15-37); BASOPHILS % (AUTO) 0.2 % (0.0-2.0); BILIRUBIN,TOTAL 0.7 mg/dL (0.2-1.0); CARBON DIOXIDE 25 mmol/L (21-32); CHLORIDE 99 mmol/L (98-107); EOSINOPHILS # (AUTO) 0.1 K/uL (0.0-0.7); EOSINOPHILS % (AUTO) 0.7 % (0.0-7.0); ETHANOL < 3 MG/DL (0-0); GLUCOSE 74 mg/dL (74-106); HEMATOCRIT 35.9 % (37-47); HEMOGLOBIN 11.9 G/DL (12.0-16.0); LYMPHOCYTES # (AUTO) 1.9 K/UL (0.8-4.8); MAGNESIUM 1.8 mg/dL (1.8-2.4); MEAN CORPUSCULAR HGB CONC 33 g/dL (32.0-37.0); MEAN CORPUSCULAR VOLUME 84.8 FL (81.0-99.0); MONOCYTES # (AUTO) 0.8 K/UL (0.1-1.30); MONOCYTES % (AUTO) 6.2 % (0.0-11.0); NEUTROPHILS # (AUTO) 9.9 K/UL (1.8-8.9); NEUTROPHILS % (AUTO) 77.9 % (38.5-71.5); PLATELET COUNT (AUTO) 325 K/UL (150-450); POTASSIUM 2.9 mmol/L (3.5-5.1); RED BLOOD CELL COUNT(AUTO) 4.23 MIL/UL (4.2-5.4); TOTAL PROTEIN, SERUM 7.2 g/dL (6.4-8.2); UREA NITROGEN, BLOOD 10 mg/dL (7-18); WHITE BLOOD COUNT (AUTO) 12.7 K/UL (4.0-11.2)
[2017-04-28 14:09] LABS: THYROID STIMULATING HORMONE 1.217 mIU/mL (0.358-3.740)
--- NOTE | 2017-04-28 14:13 | NUR ---
MD communication Notified Dr Nickerson of WBC of 12,7, NA of 134 and K of 2.9. Dr Nickerson will place orders when able to.
[2017-04-28] MEDS: GABAPENTIN 400 MG CAPSULE PO SCH ×2 (14:40→21:52)
[2017-04-28] MEDS ORDERED: PATIENT MAY USE OWN MED- MD OK PO SCH (15:00)
[2017-04-28] MEDS ORDERED: POTASSIUM CHLORIDE 20 MEQ TAB.PRT.SR PO ONE (15:45)
[2017-04-28 16:00] VITALS: BP 126/70
--- NOTE | 2017-04-28 18:55 | NUR ---
END OF SHIFT NOTE Patient was admitted to [facility] today around 1100 from home. Patient is alert and orientated X4. She is a 26 yr old female here for Heroin, meth, and Xanax. She has been to [facility] earlier this year. Patient has a HX of anxiety, insomnia, and pancreatis. Vital signs are WNL, last COWS 5 CIWA 5. Plan is to start a 4 day Subutex taper tomorrow. Patient is compliant with MD orders and treatment plan. Patient has a few abscess; one on right leg and one on right and left arm. Pictures were taken and documented. All safety measures in place, call light within reach, bed locked and in lowest position. All needs have been met. Will continue to monitor patient until endorsed to night nurse.
[2017-04-28 20:00] VITALS: BP 116/58
--- NOTE | 2017-04-28 20:00 | NUR ---
2000 Patient received resting quietly with eyes closed in position of comfort. Patient easily aroused for vital signs and nurse assess. Patient responds to nurse's greeting with brief eye contact and soft, " Hi, and how are you?" Patient is oriented to person, place, day, date and her personal situation. Reoriented to time. Patient's color is pink and her skin is warm, dry and intact. Patient denies any pain or other discomforts at this time and she offer no requests. Vital signs are: 98.3-72-20-116/58, O2 Sat 97%, COWS 2, CIWA 2 . Patient is cooperative and verbally appropriate when interacting with nurse, though her affect is a bit flat. Patient states that she 'really did not get any sleep last night, so she is really tired now and just wants to rest'. Patient was admitted today, 04/28/17 for: Heroin, Methamphetamine and Xanax withdrawal and she has been started on a 4-Day Subutex medication taper, which she is tolerating well so far. Bed is locked and in lowest position, bed rails are up X 2 and call light within patient's easy reach.
[2017-04-28] MEDS: QUETIAPINE FUMARATE 100 MG TABLET PO SCH (21:52)
[2017-04-29] VITALS: BP 113/61
[2017-04-29 04:00] VITALS: BP 110/60
--- NOTE | 2017-04-29 06:30 | NUR ---
0630 Patient slept a total of 7 hours and 15 minutes. He had 4 voids and no stools. Total intake was 1,446 ml p.o. No Prn medications given to patient this shift. V/SS afebrile, last COWS 2 at 0400, last CIWA 1 at 0400. Patient is presently sleeping comfortably with eyes closed and respirations quiet, even, unlabored at 12.
--- NOTE | 2017-04-29 07:05 | NUR ---
Patient not awakened for COWS/CIWA assess. Assessment to be done Q4 hours while awake.
--- NOTE | 2017-04-29 07:52 | NUR ---
START OF SHIFT NOTE Received report from night nurse, 26 year old female admitted for Heroin, meth, and Xanax dependence. Allergic to Rocephin, Zofran, Full code, Regular diet. Patient reported PMH of anxiety, insomnia, and pancreatis. Pt was not given any PRN medication per endorsement, last COWS-2, CIWA-1, slept for 7 hours. Currently pt is sleeping responsive to verbal and tactile stimuli. Breathing normal no SOB noted. All safety measures in place, Call light within reach. Will cont to monitor.
[2017-04-29 08:00] VITALS: BP 112/62
[2017-04-29] MEDS: THIAMINE HCL 100 MG TABLET PO SCH (08:37)
[2017-04-29] MEDS: GABAPENTIN 400 MG CAPSULE PO SCH ×3 (08:37→20:08)
[2017-04-29] MEDS: SULFAMETH/TRIMETH 800/160 MG TABLET PO SCH ×2 (08:37→20:08)
[2017-04-29] MEDS: DIAZEPAM 10 MG TABLET PO SCH ×3 (08:37→20:09)
[2017-04-29] MEDS: MULTIVITAMINS,THERAPEUTIC TABLET PO SCH (08:37)
[2017-04-29] MEDS: FOLIC ACID 1 MG TABLET PO SCH (08:37)
[2017-04-29] MEDS: DOCUSATE SODIUM 250 MG CAPSULE PO SCH (08:37)
[2017-04-29] MEDS: BUPRENORPHINE HCL 2 MG TAB.SUBL SL SCH ×3 (08:38→20:09)
[2017-04-29] MEDS ORDERED: 4 DAY TAPER BUPRENORPHINE -SERENITY PROTOCOL SL PRN (09:00)
[2017-04-29] MEDS ORDERED: TUBERCULIN,PURIF.PROT.DERIV. 5 TU/0.1 ML TEST ID ONE (09:00)
[2017-04-29 09:05] LABS: BASOPHILS % (AUTO) 0.3 % (0.0-2.0); HEMATOCRIT 35.5 % (37-47); MEAN CORPUSCULAR VOLUME 84.8 FL (81.0-99.0); MONOCYTES # (AUTO) 0.5 K/UL (0.1-1.30); RED BLOOD CELL COUNT(AUTO) 4.19 MIL/UL (4.2-5.4)
[2017-04-29 09:09] LABS: EOSINOPHILS # (AUTO) 0.2 K/uL (0.0-0.7); EOSINOPHILS % (AUTO) 1.7 % (0.0-7.0); HEMOGLOBIN 12.1 G/DL (12.0-16.0); LYMPHOCYTES # (AUTO) 2.6 K/UL (0.8-4.8); LYMPHOCYTES % (AUTO) 28.4 % (20.5-51.5); MEAN CORPUSCULAR HEMOGLOBIN 28.8 UUG (27.0-31.0); MEAN CORPUSCULAR HGB CONC 34 g/dL (32.0-37.0); MONOCYTES % (AUTO) 5.5 % (0.0-11.0); NEUTROPHILS # (AUTO) 5.7 K/UL (1.8-8.9); NEUTROPHILS % (AUTO) 64.1 % (38.5-71.5); PLATELET COUNT (AUTO) 306 K/UL (150-450)
[2017-04-29 09:10] LABS: BILIRUBIN,DIRECT 0.1 mg/dL (0.0-0.2); BILIRUBIN,TOTAL 0.4 mg/dL (0.2-1.0); MAGNESIUM 1.9 mg/dL (1.8-2.4); PHOSPHOROUS 2.4 mg/dL (2.5-4.9); POTASSIUM 3.9 mmol/L (3.5-5.1); TOTAL PROTEIN, SERUM 6.8 g/dL (6.4-8.2)
[2017-04-29 11:07] LABS: HEPATITIS B SURFACE AG Negative (Negative)
[2017-04-29] MEDS ORDERED: DIAZEPAM 10 MG TABLET PO PRN ×4 (11:45→22:30)
[2017-04-29] MEDS ORDERED: DIAZEPAM 5 MG TABLET PO PRN ×2 (11:45→22:30)
[2017-04-29 12:00] VITALS: BP 141/87
--- NOTE | 2017-04-29 12:00 | NUR ---
PRN VALIUM Pt reported increased in anxiety and restlessness, hot and cold flashes, sweats, CIWA score noted 10. Administered PRN Valium 10mg Po as ordered. Will cont to monitor and reassess.
--- NOTE | 2017-04-29 13:00 | NUR ---
REASSESSMENT Pt reported medication effective feeling better, CIWA score noted 6.
[2017-04-29] MEDS ORDERED: DIAZEPAM 10 MG TABLET PO ONE (13:15)
[2017-04-29] MEDS: METHOCARBAMOL 750 MG TABLET PO PRN ×2 (13:35→20:09)
[2017-04-29] MEDS: IBUPROFEN 600 MG TABLET PO PRN (13:35)
--- NOTE | 2017-04-29 13:35 | NUR ---
PRN MEDS Pt c/o of muscle aches and headache 02/14,Pt provided with non pharmacological interventions with no relief. Pt was given Motrin 600mg Po/Robaxin 750mg Po as ordered. Will cont to monitor and reassess.
--- NOTE | 2017-04-29 14:45 | NUR ---
REASSESSMENT Pt reported medications effective headache and muscle spasms subside pain decreased to 1/10.
[2017-04-29 16:00] VITALS: BP 102/58
--- NOTE | 2017-04-29 18:52 | NUR ---
END OF SHIFT NOTE Pt presented with anxiety, hot cold sweats, restless, muscle spasms, headache. Pt was given PRN Valium 10mg/Motrin, Robaxin Po tolerated well. Pt also received x1 dose of Valium 10mg as ordered. Last CIWA-6, COWS-4. Vital signs WNL. Encourage Po fluids as tolerated. Educate pt to attend groups and activities to learn new coping skills. All safety measures in placer, Call light within reach. Pt endorsed to night nurse in stable condition.
[2017-04-29 20:00] VITALS: BP 134/75
--- NOTE | 2017-04-29 20:00 | NUR ---
1999 Patient received awake, alert and lying in her bed. Patient called nurse from nurses station to express her concerns about her medications ordered by Dr. Nickerson, which she states are " not working, not enough and is not the right kind of taper!" I don't want Dr. Nickerson for my doctor anymore, I'm serious! I have seen him, talked with him and he is full of sh--!" I want to have Dr. Matthews tomorrow!" Patient states further that she has been feeling anxious and jumpy a lot today and sometime uncomfortable, regardless of medications given to her, whether routine or prn. Patient allowed to ventilate her feelings, then calm reassurances given to her, along with simple explanations as needed. Patient assured that her concerns will be passed on to day shift nursing charge and staff in AM. Patient then states, " Okay". Patient is oriented to person, place, day, date, time and her personal situation. Patient's color is pink and her skin is warm, very slightly moist and intact. Patient's overall appearance is disheveled. Patient states that she attended [facility] groups today and she is eating her regular diet trays and taking fluids ad killian with no gastric issues so far. Vital signs are: 98-81-16 134/75, O2 Sat 96%, COWS 6 , CIWA 6 . Patient c/o generalized body muscle aches and pains, 6/10 pain scale. Patient is cooperative when interacting with nurse, though her mood/manner/affect is somewhat angry, hostile and suspicious. Patient was admitted on 04/28/17 for Heroin, Methamphetamine and Xanax withdrawal and she has been started on a 4-Day Subutex medication taper and a 5-Day Valium medication taper for withdrawal symptoms. Bed is locked and in lowest position, bed rails are up X 1 and call light within patient's easy reach.
[2017-04-29] MEDS: QUETIAPINE FUMARATE 100 MG TABLET PO SCH (20:08)
[2017-04-29] MEDS: [UNRECOGNIZED DRUG - MIXTURE] PO SCH (20:08)
--- NOTE | 2017-04-29 20:09 | NUR ---
PRN MEDICATION: Prn Robaxin 750 mg p.o. given per request for c/o generalized body muscle aches and pains 6/10 pain scale.
--- NOTE | 2017-04-29 21:09 | NUR ---
REASSESSMENT PRN MEDICATION: Patient is downstairs on hospital patio for smoke break. Unable to assess patient at this time.
[2017-04-30] VITALS: BP 111/57
--- NOTE | 2017-04-30 04:00 | NUR ---
Patient refused to be awakened for V/S to be done at this time.
--- NOTE | 2017-04-30 06:30 | NUR ---
0630 Patient slept a total of 6 and 3/4 hours and she had 1 void and 1 stools. Total intake was 1,151 ml p.o. Prn medication given noted separately per floor protocol. V/SS afebrile, last COWS 1 and last CIWA is 2, at 0000. Patient is presently sleeping with eyes closed and respirations quiet, even, unlabored at 14.
--- NOTE | 2017-04-30 07:07 | NUR ---
Start of Shift Report from the night nurse: pt is a 26 y/o female here for Opiate r/t Heroin 1.5-2g/IV daily for 3 yrs, Benzo r/t Xanax 10-15mg daily for 11 years and Methamphetamine "1-2 hits" occasionally; 4 da Subutex and 5 day Valium tapers ordered. Pt is a full code, regular diet,allergic to Rocephin and Zofran, fall and seizure precautions ordered. HHx: seizure 2012, chronic pancreatitis, anxiety, insomnia, and relapses with 2 visits here 09/2016 & 12/2016. V/S stable. Skin is not intact w/abscess on BUE's and on Right leg. PRN Robaxin given last night. Last COWS 1 CIWA 2. Pt is asleep in room. Will cont. to monitor the pt.
[2017-04-30 08:00] VITALS: BP 137/73
[2017-04-30] MEDS ORDERED: BUPRENORPHINE HCL 2 MG TAB.SUBL SL SCH ×2 (09:00→15:00)
[2017-04-30] MEDS ORDERED: DIAZEPAM 10 MG TABLET PO SCH (09:00)
[2017-04-30] MEDS ORDERED: DIAZEPAM 5 MG TABLET PO SCH ×2 (09:00)
[2017-04-30] MEDS: DOCUSATE SODIUM 250 MG CAPSULE PO SCH (09:00)
[2017-04-30] MEDS: MULTIVITAMINS,THERAPEUTIC TABLET PO SCH (09:10)
[2017-04-30] MEDS: FOLIC ACID 1 MG TABLET PO SCH (09:10)
[2017-04-30] MEDS: THIAMINE HCL 100 MG TABLET PO SCH (09:10)
[2017-04-30] MEDS: GABAPENTIN 400 MG CAPSULE PO SCH (09:10)
[2017-04-30] MEDS: SULFAMETH/TRIMETH 800/160 MG TABLET PO SCH ×2 (10:43→20:34)
[2017-04-30] MEDS: METHOCARBAMOL 750 MG TABLET PO PRN ×2 (10:43→20:34)
[2017-04-30] MEDS: IBUPROFEN 600 MG TABLET PO PRN (10:44)
--- NOTE | 2017-04-30 10:45 | NUR ---
PRN Medication Administration Pt is in room with anxiety and c/o muscle tension/discomfort and MORRELL; PRN Robaxin 750mg and Motrin 600mg given as ordered. I will reassess in 1H.
--- NOTE | 2017-04-30 11:45 | NUR ---
Reassessment Pt is getting ready to go smoke and states that muscle discomfort is relieve and denies MORRELL; Motrin and Robaxin are effective. Will cont. to monitor the pt.
[2017-04-30 12:00] VITALS: BP 133/69
[2017-04-30] MEDS: DIAZEPAM 10 MG TABLET PO SCH ×3 (12:29→20:36)
[2017-04-30 16:00] VITALS: BP 111/51
[2017-04-30] MEDS: GABAPENTIN 300 MG CAPSULE PO SCH ×2 (16:24→20:36)
[2017-04-30] MEDS: BUPRENORPHINE HCL 2 MG TAB.SUBL SL SCH ×2 (16:25→20:35)
--- NOTE | 2017-04-30 16:25 | NUR ---
PRN Medication Administration Pt c/o muscle cramps so PRN Bentyl 20mg given as ordered. Will reassess in 1H.
--- NOTE | 2017-04-30 17:30 | NUR ---
Reassessment Pt is in room resting in bed and denies ab/muscle cramps; Bentyl is effective. Will cont. to monitor the pt.
--- NOTE | 2017-04-30 19:18 | NUR ---
End of Shift Report to the night nurse: pt is a 26 y/o female here for Opiate r/t Heroin 1.5-2g/IV daily for 3 yrs, Benzo r/t Xanax 10-15mg daily for 11 years and Methamphetamine "1-2 hits" occasionally; 4 day Subutex and 5 day Valium tapers ordered. Pt is a full code, regular diet, allergic to Rocephin and Zofran, fall and seizure precautions ordered. HHx: seizure 2012, chronic pancreatitis, anxiety, insomnia, and relapses with 2 visits here 09/2016 & 12/2016. Features symmetrical, PERRLA 3mm, pt c/o MORRELL so PRN Motrin 600mg given. Pt denies chest pain, no SOB noted and V/S stable. No N/V/D noted but pt c/o ab cramps so PRN Bentyl given during my shift. UT c/o muscle tension so PRN Robaxin given during my shift. Skin is not intact w/abscess on BUE's and on Right leg with Bactrim PO ordered and new orders for I&D evaluations ordered . Pt denies dysuria. New orders for modified valium taper with dose increased by new assigned Dr. Matthews. Pt directed for the pt to be excused from group therapy and activities since she was not doing well. No hallucinations delusions or suicidal ideations noted during my shift. Last COWS 9 CIWA 4.
--- NOTE | 2017-04-30 19:37 | NUR ---
START OF SHIFT Pt is a 26 y/o female here for Opiate/ Benzo / Methamphetamine dependency. Placed on 4 day Subutex and 5 day Valium tapers ordered. Pt is a full code, regular diet, allergic to Rocephin and Zofran,on fall and seizure precautions ordered. PMH of seizure 2013, chronic pancreatitis, anxiety and insomnia.Skin is not intact w/abscess on BUE's and on Right leg with Bactrim PO ordered and new orders for I&D evaluations ordered . New orders for modified Valium taper with dose increased by new assigned Dr. Matthews. Pt was excused from group therapy and activities since she was not doing well. No hallucinations delusions or suicidal ideations noted during day shift. Last COWS 9 CIWA 4. All safety measures in place. call light within reach, Will continue to monitor.
[2017-04-30 20:00] VITALS: BP 133/69
[2017-04-30] MEDS: LACTOBACILLUS RHAMNOSUS GG 1 EACH CAPSULE PO SCH (20:34)
[2017-04-30] MEDS: QUETIAPINE FUMARATE 100 MG TABLET PO SCH (20:35)
--- NOTE | 2017-04-30 20:40 | NUR ---
PRN MEDS PRN ROBAXIN AND MOM GIVEN ORDERED FOR C/O MYALGIA AND CONSTIPATION RESPECTIVELY.WILL MONITOR.
[2017-04-30] MEDS: [UNRECOGNIZED DRUG - MIXTURE] PO SCH (20:42)
--- NOTE | 2017-04-30 21:40 | NUR ---
PRN F/U MYALGIA IMPROVED,CONSTIPATION RESULT STILL PENDING.
[2017-05-01] VITALS: BP 125/58
--- NOTE | 2017-05-01 04:00 | NUR ---
V/S REFUSED.COWS/CIWA DEFERRED. PT IS IN DEEP SLEEP.BREATHING EVEN AND NO LABORED.NO S/S OF DISTRESS NOTED,WILL BE MONITORED FOR SAFETY.
--- NOTE | 2017-05-01 06:35 | NUR ---
END OF SHIFT Pt is a 26 y/o female admitted for Opiate/ Benzo / Methamphetamine dependency. Continues on Subutex and Valium tapers ordered. Pt is a full code, regular diet, allergic to Rocephin and Zofran,on fall and seizure precautions. PMH of seizures, chronic pancreatitis, anxiety and insomnia.Skin is not intact w/abscess on BUE's and on Right leg ; on Bactrim PO ordered ; new orders for US for right lateral leg noted .Last COWS=3 CIWA=3.PRN Robaxin and MOM were given last night,result still pending.Pt slept 7 hrs,fluid intake was 1350 mls,voided x 1. All safety measures in place, call light within reach, Will continue to monitor.
[2017-05-01 07:33] LABS: BASOPHILS # (AUTO) 0.1 K/uL (0.0-8.0); BASOPHILS % (AUTO) 1.2 % (0.0-2.0); EOSINOPHILS # (AUTO) 0.3 K/uL (0.0-0.7); EOSINOPHILS % (AUTO) 3.2 % (0.0-7.0); HEMATOCRIT 33.9 % (37-47); HEMOGLOBIN 11.5 G/DL (12.0-16.0); LYMPHOCYTES # (AUTO) 2.3 K/UL (0.8-4.8); LYMPHOCYTES % (AUTO) 26.4 % (20.5-51.5); MEAN CORPUSCULAR HEMOGLOBIN 28.4 UUG (27.0-31.0); MEAN CORPUSCULAR HGB CONC 34 g/dL (32.0-37.0); MONOCYTES # (AUTO) 0.5 K/UL (0.1-1.30); MONOCYTES % (AUTO) 5.6 % (0.0-11.0); NEUTROPHILS # (AUTO) 5.5 K/UL (1.8-8.9); NEUTROPHILS % (AUTO) 63.6 % (38.5-71.5); PLATELET COUNT (AUTO) 325 K/UL (150-450); RED BLOOD CELL COUNT(AUTO) 4.04 MIL/UL (4.2-5.4); WHITE BLOOD COUNT (AUTO) 8.7 K/UL (4.0-11.2)
--- NOTE | 2017-05-01 07:33 | NUR ---
Start of shift Clinical Coder received report from night nurse on 26 year old female admitted on 04/28/17 for Heroin, methamphetamine and Xanax detoxification. Pt is a full code, on a regular diet and has reported allergies to Rocephin and Zofran. Pt has abscesses to bilateral arms and right leg, ultrasound of right leg ordered for today. Pt reports a PMH of chronic pancreatitis, anxiety and insomnia. Pt currently on a 4 day Subutex and 5 day Valium taper, pt tolerating well. Last COWS of 3 and CIWA of 3 recorded at 0000. Pt received Robaxin and Milk of Magnesia, PRN, during shift supervisor melting, per report. Pt reports no BM of yet. Clinical Coder first encounters pt in bed resting. Pt is A/O x4 and able to make needs known. Pt is somnolent and reports being tired, from not sleeping well. Bed in low position, wheels locked and side rails up x2, with call light within reach. All safety measures in place per hospital policy. Will continue to monitor, support and encourage according to plan of care.
[2017-05-01 07:46] LABS: MAGNESIUM 1.9 mg/dL (1.8-2.4); PHOSPHOROUS 3.2 mg/dL (2.5-4.9); POTASSIUM 4.1 mmol/L (3.5-5.1)
[2017-05-01 08:04] VITALS: BP 115/56
[2017-05-01] MEDS: MULTIVITAMINS,THERAPEUTIC TABLET PO SCH (08:55)
[2017-05-01] MEDS: SULFAMETH/TRIMETH 800/160 MG TABLET PO SCH ×2 (08:55→20:59)
[2017-05-01] MEDS: DIAZEPAM 10 MG TABLET PO SCH ×3 (08:55→21:00)
[2017-05-01] MEDS: GABAPENTIN 300 MG CAPSULE PO SCH ×3 (08:55→20:59)
[2017-05-01] MEDS: LACTOBACILLUS RHAMNOSUS GG 1 EACH CAPSULE PO SCH ×2 (08:55→20:59)
[2017-05-01] MEDS ORDERED: DIAZEPAM 5 MG TABLET PO SCH ×2 (09:00)
[2017-05-01] MEDS ORDERED: BUPRENORPHINE HCL 2 MG TAB.SUBL SL SCH ×2 (09:00)
[2017-05-01] MEDS: KETOROLAC TROMETHAMINE 30 MG INJ IM PRN ×2 (12:51→21:09)
--- NOTE | 2017-05-01 12:51 | NUR ---
PRN Administration Pt complain of pain 8/10 around the abscess on her right arm. Pt attempted non-pharmacological interventions x3, with no effective relief. Sales Enablement Specialist administered Toradol per MD order, pt tolerated well. Will re-assess and continue to monitor, support and encourage according to plan of care.
[2017-05-01 12:56] VITALS: BP 116/57
[2017-05-01] MEDS ORDERED: diphenhydrAMINE/ZINC ACET CREAM 28 GM TUBE TOP PRN (13:15)
--- NOTE | 2017-05-01 13:21 | NUR ---
PRN Re-assessment Pt endorses some relief from IM of Toradol, reports pain at 3/10, which she describes as tolerable. Will continue to moniotr, support and encourage according to plan of care.
[2017-05-01] MEDS ORDERED: DIAZEPAM 10 MG TABLET PO ONE (13:30)
--- NOTE | 2017-05-01 13:33 | NUR ---
OT Dose of Valium ordered OT dose of Valium for pt anxiety. CIWA of 3 recorded at approx. 1300.
--- NOTE | 2017-05-01 14:33 | NUR ---
MADELINE Rivera re-assessment Pt recorded a CIWA of 2 and states she is feeling much better. Will continue to monitor, support and encourage according to plan of care.
[2017-05-01] MEDS ORDERED: CEPHALEXIN MONOHYDRATE 500 MG CAPSULE PO SCH (15:00)
[2017-05-01] MEDS: DICYCLOMINE HCL 20 MG TABLET PO SCH ×2 (15:19→21:00)
[2017-05-01] MEDS: BUPRENORPHINE HCL 2 MG TAB.SUBL SL SCH ×2 (15:20→21:00)
[2017-05-01 16:20] VITALS: BP 137/75
--- NOTE | 2017-05-01 19:13 | NUR ---
End of shift Postal Superintendent provided report to night nurse with no further comments, questions or concerns voiced. Pt is a 26 year old female admitted on 04/28/17 for Heroin, methamphetamine and Xanax detoxification. Pt is a full code, on a regular diet and has reported allergies to Rocephin and Zofran. Pt has abscesses to bilateral arms and right leg, ultrasound of right leg performed today. Pt scheduled for and I&D this evening. Pt reports a PMH of chronic pancreatitis, anxiety and insomnia. Pt currently on a 4 day Subutex and 5 day Valium taper, pt tolerating well. Last COWS of 5 and CIWA of 2 recorded at 1600. Pt received Toradol IM for pain 05/17, PRN with pt endorsing the medication was effective. Pt also received a onetime order of 10mg Valium for anxiety, pt reported this to be effective. Pt is A/O x4 and able to make needs known. Pt is calm and cooperative and able to make her needs known. Flat affect with w depressed mood. Bed in low position, wheels locked and side rails up x2, with call light within reach. All safety measures in place per hospital policy.
--- NOTE | 2017-05-01 19:30 | NUR ---
START OF SHIFT Pt is a 26 y/o female here for Opiate/ Benzo / Methamphetamine dependency. Placed on Valium and Subutex tapers as ordered;on fall and seizure precautions ordered. PMH of seizure, chronic pancreatitis, anxiety and insomnia.Pt has abscess on BUE's and on Right leg ,continues to be on Bactrim PO as ordered .No A/R noted.Pt scheduled for I & D this evening. No hallucinations delusions or suicidal ideations noted .Pt is pleasant on approach, cooperative with treatment plan. Last COWS 5 CIWA 2. All safety measures in place. call light within reach, Will continue to monitor.
[2017-05-01 20:00] VITALS: BP 120/73
[2017-05-01] MEDS: [UNRECOGNIZED DRUG - MIXTURE] PO SCH (20:58)
[2017-05-01] MEDS: QUETIAPINE FUMARATE 100 MG TABLET PO SCH (20:59)
[2017-05-01] MEDS ORDERED: PROMETHAZINE HCL 25 MG/1 ML VIAL IM PRN (21:15)
--- NOTE | 2017-05-01 21:15 | NUR ---
PRN MED PT C/O SEVERE PAIN IN HER RIGHT ARM,06/17.TORADOL IM GIVEN ORDERED.WILL MONITOR.
--- NOTE | 2017-05-01 21:59 | NUR ---
PRN MED PT C/O SEVERE NAUSEA,NO VOMITING NOTED.PRN PHENERGAN IM GIVEN ORDERED.WILL MONITOR.
[2017-05-01] MEDS ORDERED: PROMETHAZINE HCL 25 MG/1 ML VIAL ONE (22:08)
--- NOTE | 2017-05-01 22:15 | NUR ---
PRN TORADOL IM IS EFFECTIVE.PAIN LEVEL REDUCED TO 3/10.
--- NOTE | 2017-05-01 23:00 | NUR ---
PRN ZOFRAN IS EFFECTIVE.NAUSEA RESOLVED.
[2017-05-02] VITALS: BP 116/78
--- NOTE | 2017-05-02 04:00 | NUR ---
V/S REFUSED.COWS/CIWA DEFERRED. PT IS IN DEEP SLEEP.BREATHING EVEN AND NO LABORED.NO S/S OF DISTRESS NOTED,WILL BE MONITORED FOR SAFETY.
--- NOTE | 2017-05-02 06:57 | NUR ---
END OF SHIFT Pt is a 26 y/o female here for Opiate/ Benzo / Methamphetamine dependency. Placed on Valium and Subutex tapers as ordered;on fall and seizure precautions ordered. PMH of seizure 2013, chronic pancreatitis, anxiety and insomnia.Pt has abscess on BUE's and on Right leg ,continues to be on Bactrim PO as ordered .I&D was not done last night.Will endorse to day shift nurse to follow up.PRN Toradol and Phenergan were given last night and were effective.Pt slept 8 hrs,fluid intake was 1,000 mls,voided x 2. Last COWS 3 CIWA 2. All safety measures in place. call light within reach, Will continue to monitor.
--- NOTE | 2017-05-02 07:45 | NUR ---
Start of Shift Junior Recruiter received report from night nurse on 26 year old female admitted on 04/28/17 for Heroin, methamphetamine and Xanax detoxification. Pt is a full code, on a regular diet and has reported allergies to Rocephin and Zofran. Pt has abscesses to bilateral arms and right leg, I&D of left arm abscess ordered for today. Pt reports a PMH of chronic pancreatitis, anxiety and insomnia. Pt currently on a 4 day Subutex and 5 day Valium taper, pt tolerating well. Last COWS of 3 and CIWA of 2 recorded at 0000. Pt received Toradol and Pheregan PRN, during case picker, per report.. Junior Recruiter first encounters pt in bed resting. Pt is A/O x4 and able to make needs known. Pt is somnolent and reports being tired, from not sleeping well. Bed in low position, wheels locked and side rails up x2, with call light within reach. All safety measures in place per hospital policy. Will continue to monitor, support and encourage according to plan of care.
[2017-05-02 08:15] VITALS: BP 125/60
[2017-05-02] MEDS: SULFAMETH/TRIMETH 800/160 MG TABLET PO SCH ×2 (08:21→20:41)
[2017-05-02] MEDS: GABAPENTIN 300 MG CAPSULE PO SCH ×3 (08:21→20:42)
[2017-05-02] MEDS: DICYCLOMINE HCL 20 MG TABLET PO SCH ×3 (08:21→20:41)
[2017-05-02] MEDS: DIAZEPAM 5 MG TABLET PO SCH ×3 (08:21→20:43)
[2017-05-02] MEDS: MULTIVITAMINS,THERAPEUTIC TABLET PO SCH (08:21)
[2017-05-02] MEDS: LACTOBACILLUS RHAMNOSUS GG 1 EACH CAPSULE PO SCH ×2 (08:21→20:41)
[2017-05-02] MEDS: BUPRENORPHINE HCL 2 MG TAB.SUBL SL SCH ×3 (08:22→20:43)
[2017-05-02] MEDS ORDERED: BUPRENORPHINE HCL 2 MG TAB.SUBL SL SCH (09:00)
[2017-05-02] MEDS ORDERED: DIAZEPAM 5 MG TABLET PO SCH ×2 (09:00)
[2017-05-02] MEDS: KETOROLAC TROMETHAMINE 30 MG INJ IM PRN ×2 (09:23→17:56)
--- NOTE | 2017-05-02 09:23 | NUR ---
PRN Administration of Toradol Pt requests Toradol for pain level 10/ d/t left arm abscess. Pt is irritable and grimacing. Sterile Processing Technologist administered IM medication per MD order, pt tolerated well. Will continue to monitor, support and encourage according to plan of care.
--- NOTE | 2017-05-02 10:23 | NUR ---
PRN Re-assessment Medication effective. Pt up and ambulating, states, "feels better, but I still fell it." Rates pain 5/10. Will continue to monitor, support and encourage according to plan of care.
[2017-05-02 12:18] VITALS: BP 141/78
[2017-05-02] MEDS ORDERED: LIDOCAINE 1%-EPI 1:100,000 20 ML VIAL TP ONE (14:00)
[2017-05-02] MEDS: CLINDAMYCIN HCL 300 MG CAPSULE PO SCH ×2 (14:51→20:41)
[2017-05-02 16:56] VITALS: BP 129/66
--- NOTE | 2017-05-02 16:56 | NUR ---
Therapist prompted client to attend daily group sessions, and reminded client that groups are daily at 11am and 3:30. Client stated that she would try to go but did not give a firm answer.
--- NOTE | 2017-05-02 17:56 | NUR ---
PRN Toradol Pt requested IM of Toradol, as it has been effective in easing her pain, r/t left arm abscess. Pt endorses pain level 9/10, non-pharmacological interventions not effective. Medication administered per MD orders, pt tolerated well. Will continue to monitor, support and encourage according to plan of care.
[2017-05-02] MEDS: CLONIDINE HCL 0.1 MG TABLET PO PRN (18:51)
--- NOTE | 2017-05-02 18:52 | NUR ---
Clonidine Administration Pt requested something for anxiety r/t impending I&D. Pt has attempted non-pharmacological interventions to no avail. Gas Pumping Station Helper administered medication per MD order. Will continue to monitor, support and encourage according to plan of care.
--- NOTE | 2017-05-02 18:56 | NUR ---
Toradol Re-Assessment Pt endorses getting relief from her PRN medication, stating, " that stuff helps." Will continue to monitor, support and encourage according to plan of care.
--- NOTE | 2017-05-02 19:07 | NUR ---
End of Shift Hospice Care Consultant provided report to night nurse on 26 year old female admitted on 04/28/17 for Heroin, methamphetamine and Xanax detoxification. No further comments, questions or concerns voiced. Pt is a full code, on a regular diet and has reported allergies to Rocephin and Zofran. Pt has abscesses to bilateral arms and right leg, I&D of left arm abscess ordered for today, staff performing I&D have just arrived on the unit. Pt reports a PMH of chronic pancreatitis, anxiety and insomnia. Pt currently on a 4 day Subutex and 5 day Valium taper, pt tolerating well. Last COWS of 4 and CIWA of 3 recorded at 1600. Pt received Toradol x2 PRN, with effective pain relief. Pt also administered Clonidine at 1851 for anxiety. Pt is A/O x4 and able to make needs known. Pt is cooperative and polite, participates in groups and is medication compliant. Bed in low position, wheels locked and side rails up x2, with call light within reach. All safety measures in place per hospital policy.
--- NOTE | 2017-05-02 19:29 | NUR ---
1928 I&D of left inner forearm abscess done by JUNIOR Harp RN, along with Lidocaine HCL and Epinephrine 1:100,000, local dose given by JUNIOR.
[2017-05-02 20:00] VITALS: BP 121/79
--- NOTE | 2017-05-02 20:00 | NUR ---
2000 Patient awake, alert and sitting up on her bed and complaining, " That doctor didn't know what she was doing! I should have gone to the emergency room to have my abscess done! It still hurts." Clean, dry, dressing intact over incised left inner forearm abscess. left forearm noticeably slightly reddened and larger than right forearm, by obvious edema. Patient's overall appearance is disheveled. Calm reassurances given to patient to redirect her affect/mood to calmer state, with good results noted. Patient is oriented to person, place, day, date, time and her personal situation. Patient's color is pink and her skin is warm, very slightly moist and intact. Patient states, " I have an abscess on my left leg, but it isn't ready to be lanced yet". Small reddish-colored slightly lump area noted on left thigh". Vital signs are: 98.6-91-20 121/79, O2 Sat 97%, COWS 4 , CIWA 5 . Patient states that she is eating her regular diet trays, taking food snacks and fluids ad killian with no gastric issues. Patient is cooperative and verbally appropriate, with some prompting at times, when interacting with nurse, however she is redirectable, when she becomes agitated about something. Patient was admitted on 04/28/17 for: Heroin, Methamphetamine and Xanax withdrawal and she is currently on a 4-Day Subutex medication taper and a 5-Day Valium medication taper, both of which she is apparently tolerating well. Patient denies the need for any pain medication at this time and she states that, " I'm just ready for all my night meds now". Bed is locked and in lowest position, bed rails are up X 1 and call light within patient's easy reach.
[2017-05-02] MEDS: [UNRECOGNIZED DRUG - MIXTURE] PO SCH (20:42)
[2017-05-02] MEDS: QUETIAPINE FUMARATE 100 MG TABLET PO SCH (20:43)
--- NOTE | 2017-05-03 | NUR ---
Patient refused to be awakened for V/S to be done at this time.
--- NOTE | 2017-05-03 04:00 | NUR ---
Patient refused to be awakened for V/S to be done at this time.
--- NOTE | 2017-05-03 06:30 | NUR ---
0630 Patient slept a total of 8 hours and she had 2 voids and no stools. Total intake was 1,896 ml p.o. No prn medications given this shift. V/SS afebrile, last COWS 2, last CIWA 3 at 0000. Patient is presently sleeping soundly with eyes closed and respirations even, unlabored at 12.
[2017-05-03] MEDS: KETOROLAC TROMETHAMINE 30 MG INJ IM PRN (07:06)
--- NOTE | 2017-05-03 07:06 | NUR ---
PRN MEDICATION: Prn Toradol 30 mg IM given into [facility] for c/o acute, aching pain in left inner forearm, 8/10 pain scale.
--- NOTE | 2017-05-03 07:15 | NUR ---
Start of Shift Report from the night nurse with update: pt is a 26 y/o female here for Opiate r/t Heroin 1.5-2g/IV daily for 3 yrs, Benzo r/t Xanax 10-15mg daily for 11 years and Methamphetamine "1-2 hits" occasionally; 4 da Subutex and 5 day Valium tapers ordered. Pt is a full code, regular diet,allergic to Rocephin and Zofran, fall and seizure precautions ordered. HHx: seizure 2012, chronic pancreatitis, anxiety, insomnia, and relapses with 2 visits here 09/2016 & 12/2016. V/S stable. Skin is not intact w/abscess on BUE's and on Right leg and I&D done with DD in place. PRN Toradol given at 0710 this morning by night nurset. Last COWS 2 CIWA 3. Pt is awake in room resting in bed. Will cont. to monitor the pt.
[2017-05-03 08:00] VITALS: BP 118/59
[2017-05-03] MEDS ORDERED: DIAZEPAM 5 MG TABLET PO SCH (09:00)
[2017-05-03] MEDS: GABAPENTIN 300 MG CAPSULE PO SCH ×3 (10:10→21:01)
[2017-05-03] MEDS: SULFAMETH/TRIMETH 800/160 MG TABLET PO SCH ×2 (10:10→21:00)
[2017-05-03] MEDS: BUPRENORPHINE HCL 2 MG TAB.SUBL SL SCH ×2 (10:11→21:02)
[2017-05-03] MEDS: LACTOBACILLUS RHAMNOSUS GG 1 EACH CAPSULE PO SCH ×2 (10:11→21:00)
[2017-05-03] MEDS: DICYCLOMINE HCL 20 MG TABLET PO SCH ×3 (10:11→21:00)
[2017-05-03] MEDS: DIAZEPAM 5 MG TABLET PO SCH ×2 (10:11→21:02)
[2017-05-03] MEDS: CLINDAMYCIN HCL 300 MG CAPSULE PO SCH ×3 (10:14→21:00)
[2017-05-03] MEDS: MULTIVITAMINS,THERAPEUTIC TABLET PO SCH (10:14)
[2017-05-03 12:00] VITALS: BP 118/61
[2017-05-03] MEDS: IBUPROFEN 600 MG TABLET PO PRN (15:44)
[2017-05-03] MEDS ORDERED: HYDROXYZINE PAMOATE 25 MG CAPSULE PO PRN (15:45)
--- NOTE | 2017-05-03 15:45 | NUR ---
PRN Medication Administration Pt c/o left FA discomfort with inflammation present s/p I&D so PRN Motrin 600mg given as ordered. Will reassess in 1H.
[2017-05-03 16:00] VITALS: BP 98/55
--- NOTE | 2017-05-03 16:45 | NUR ---
Reassessment Pt denies pain and decreased inflammation present; Motrin is effective. Will cont.to monitor the pt.
--- NOTE | 2017-05-03 19:37 | NUR ---
End of Shift Report to the night nurse with update: pt is a 26 y/o female here for Opiate r/t Heroin 1.5-2g/IV daily for 3 yrs, Benzo r/t Xanax 10-15mg daily for 11 years and Methamphetamine "1-2 hits" occasionally; 4 da Subutex and 5 day Valium tapers ordered. Pt is a full code, regular diet,allergic to Rocephin and Zofran, fall and seizure precautions ordered. HHx: seizure 2012, chronic pancreatitis, anxiety, insomnia, and relapses with 2 visits here 09/2016 & 12/2016. V/S stable. Skin is not intact w/abscess on BUE's and on Right leg and I&D done with DD in place and reevaluate today with recommendations of for the right thigh to apply heat pad to help the wound drain so I endorsed that to the night nurse, DD change on the left FA. PRN Motrin 600mg given for pain and inflammation. No hallucinations, delusions or suicidal ideations noted. Pt attended the group therapy. Last COWS 4 CIWA 2.
[2017-05-03 20:00] VITALS: BP 122/68
--- NOTE | 2017-05-03 20:00 | NUR ---
2000 Patient received awake, alert and ambulating in hallway, to her room # [id number], from [facility]. Gait is steady. Upon seeing nurse, patient states loudly, " I want to go AMA, because I have to find out what's going on with my boyfriend! He's supposed to be calling to check up on me every day, but nobody here has gotten any calls from him." Patient is oriented to person, place, day, date, time and her personal situation. Dressing dry and intact to left inner forearm, over I/D abscess area. No drainage noted on dressing. Patient denies need for any pain medication at this time, but she requests that her right outer upper thigh, intact abscess be wrapped with moist warm towels and disposable heat pack, per PA order, when she is given her PM medications. Patient states that she continues to attend [facility] groups regularly and she is eating her regular diet trays and taking fluids ad lb with no gastric issues. Vital signs are: 98.3-73-14 122/68, O2 Sat 98%, COWS 5, CIWA 6. Patient is cooperative and verbally appropriate when interacting with nurse, for the most part, however she is anxious and somewhat agitated, needing lots of calm reassurances and explanations to multiple questions, to redirect her mood to stay appropriate. Bed is locked and in lowest position, bed rails are up X1 and call light within patient's easy reach.
--- NOTE | 2017-05-03 21:00 | NUR ---
Warm water moist ABD and 4X4 gauges, along with disposable heat pack, applied to right outer upper thigh intact abscess, per PA order as noted by Charge nurse. Paper tape applied to keep all in place. Patient states, " Okay, that's good".
[2017-05-03] MEDS: QUETIAPINE FUMARATE 100 MG TABLET PO SCH (21:01)
[2017-05-03] MEDS: [UNRECOGNIZED DRUG - MIXTURE] PO SCH (21:01)
--- NOTE | 2017-05-03 21:30 | NUR ---
Patient report given to oncoming nurse, Kyle Honeycutt RN, per patient assignment. Patient is in stable condition, laying down in her bed presently.
--- NOTE | 2017-05-03 21:45 | NUR ---
PRN MEDICATION: Prn Maalox suspension 30 ml p.o. given per request for c/o heartburn.
--- NOTE | 2017-05-03 21:45 | NUR ---
Received Endorsement Patient is a 26-year old, female, admitted for Heroin, Methamphetamine, and Xanax Dependence. Pt reports allergies to Ceftriaxone and Ondansetron, on Regular Diet and is Full Code. With reported history of Chronic Pancreatitis, Anxiety and Insomnia. Pt is AAOx4 and with slight anxiety noted. Pt is ambulatory with steady gair. Pt with dressing-clean, dry and intact to left inner forearm, S/P I&D of abscess. Patient denies need for any pain medication at this time. With closed abscess on the right outer upper thigh, with warm moist towel and disposable heat pack available PRN. Fall, universal and safety prec in place. Call light within reach. Kept pt warm, dry and comfortable. Latest COWS=5, CIWA=4. Will continue to monitor.
--- NOTE | 2017-05-03 22:45 | NUR ---
RN note reassess Pt verbalized feeling relieved from heartburn. Maalox was effective.
[2017-05-04] VITALS: BP 115/64
[2017-05-04] MEDS: CLONIDINE HCL 0.1 MG TABLET PO PRN (02:20)
--- NOTE | 2017-05-04 02:21 | NUR ---
RN note PRN Clonidine Pt c/o feeling restless and noted to be anxious. Administered Clonidine 0.1 mg PO. No SOB noted. Will reassess.
--- NOTE | 2017-05-04 03:30 | NUR ---
RN note reassess Pt asleep on bed, no SOB, restlessness nor facial grimacing noted.
[2017-05-04 04:00] VITALS: BP 110/65
--- NOTE | 2017-05-04 07:25 | NUR ---
End of Shift Patient is a 26-year old, female, admitted for Heroin, Methamphetamine, and Xanax Dependence. Pt reports allergies to Ceftriaxone and Ondansetron, on Regular Diet and is Full Code. With reported history of Chronic Pancreatitis, Anxiety and Insomnia. Pt is AAOx4 and with slight anxiety noted. Pt is ambulatory with steady gair. Pt with dressing-clean, dry and intact to left inner forearm, S/P I&D of abscess. Patient denies need for any pain medication at this time. With closed abscess on the right outer upper thigh, with warm moist towel and disposable heat pack available PRN. Fall, universal and safety prec in place. Call light within reach. Kept pt warm, dry and comfortable. Latest COWS=4, CIWA=3, slept for 7 hours. Endorsed to AM shift nurse for continuity of care.
--- NOTE | 2017-05-04 07:30 | NUR ---
START OF SHIFT Rcvd endorsement from ongoing nurse, client is in the hallway, a/o x4 , she is fully ambulatory, she wants to go to the patio to smoke a cigarette, she presents with anxious mood, flat affect. she denies any N/V/D, she denies any SI/HI. She had an uneventful night, she slept 7 hrs. Last COWS 4/ CIWA 3. Today is last dose of 4 day Subutex taper. She completed 6 day Valium modified taper, tolerated well. Client is a 26-year old, female, admitted for Xanax, Heroin, and Methamphetamine withdrawal. Allergies to Ceftriaxone and Ondansetron, Regular Diet, Full Code. Soil dressing, intact to left F/A, S/P I&D (05/02/17) of abscess. Right outer thigh c/ intact abscess with warm moist towel and disposable heat pack available PRN, she is on Po antibiotic Clindamycin Hcl 300mg TID 3/7 x days and Bactrim DS 1 Tab Q12H 6/7 x days for infection, tolerating well with no ASE. Client reports hx of withdrawal induced seizures (2012), she is on seizure precautions. Will continue to monitor.
[2017-05-04 08:00] VITALS: BP 101/60
[2017-05-04] MEDS: LACTOBACILLUS RHAMNOSUS GG 1 EACH CAPSULE PO SCH ×2 (08:21→20:35)
[2017-05-04] MEDS: GABAPENTIN 300 MG CAPSULE PO SCH ×3 (08:21→20:35)
[2017-05-04] MEDS: CLINDAMYCIN HCL 300 MG CAPSULE PO SCH ×3 (08:21→20:35)
[2017-05-04] MEDS: MULTIVITAMINS,THERAPEUTIC TABLET PO SCH (08:21)
[2017-05-04] MEDS: SULFAMETH/TRIMETH 800/160 MG TABLET PO SCH ×2 (08:21→20:35)
[2017-05-04] MEDS: KETOROLAC TROMETHAMINE 30 MG INJ IM PRN ×2 (08:23→18:47)
--- NOTE | 2017-05-04 08:23 | NUR ---
PRN Toradol Inj 30mg IM to R buttock Client reports pain 8/10 on L F/A sp I & D. Call light within reach. Will continue to monitor.
[2017-05-04] MEDS: DICYCLOMINE HCL 20 MG TABLET PO SCH ×3 (08:28→20:35)
[2017-05-04] MEDS ORDERED: BUPRENORPHINE HCL 2 MG TAB.SUBL SL SCH (09:00)
--- NOTE | 2017-05-04 09:23 | NUR ---
Reassessment PRN Toradol Inj 30mg IM to R buttock Client reports relief from pain 0/10 on L F/A sp I & D. Call light within reach. Will continue to monitor
[2017-05-04 12:48] VITALS: BP 130/68
[2017-05-04] MEDS ORDERED: BACLOFEN 20 MG TABLET PO PRN (13:00)
[2017-05-04] MEDS ORDERED: diphenhydrAMINE 50 MG CAPSULE PO ONE (15:15)
[2017-05-04 16:55] VITALS: BP 116/64
[2017-05-04] MEDS ORDERED: LIDOCAINE 1%-EPI 1:100,000 20 ML VIAL TP ONE (18:30)
[2017-05-04] MEDS ORDERED: DIPH50CA37 PO (18:31)
[2017-05-04] MEDS ORDERED: IBUP-1955 PO (18:31)
[2017-05-04] MEDS ORDERED: BACL20TA PO (18:31)
[2017-05-04] MEDS ORDERED: LACT1CAP57 PO (18:31)
[2017-05-04] MEDS ORDERED: GABA-534 PO (18:31)
[2017-05-04] MEDS ORDERED: DICY20TA28 PO (18:31)
[2017-05-04] MEDS ORDERED: HYDR-3895 PO (18:31)
[2017-05-04] MEDS ORDERED: CLIN300C3 PO (18:31)
[2017-05-04] MEDS ORDERED: QUET100T PO (18:31)
[2017-05-04] MEDS ORDERED: SULF1TAB3 PO (18:31)
[2017-05-04 18:45] LABS: *AMPHETAMINE, URINE NEGATIVE (NEGATIVE); *BARBITURATE, URINE NEGATIVE (NEGATIVE); *CANNABINOID, URINE NEGATIVE (NEGATIVE); *COCCAINE, URINE NEGATIVE (NEGATIVE); *OPIATE, URINE NEGATIVE (NEGATIVE); *PHENCYCLIDINE SCREEN,URINE NEGATIVE (NEGATIVE)
[2017-05-04] MEDS ORDERED: LIDOCAINE 2%-EPI 1:100,000 20 ML VIAL TP ONE (18:45)
--- NOTE | 2017-05-04 18:47 | NUR ---
PRN Toradol Inj 30mg IM L deltoid Client reports pain 8/10 on R thigh, N.P. Janel at bedside performing I & D. Call light within reach. Will endorse incoming nurse to reassess.
--- NOTE | 2017-05-04 19:00 | NUR ---
END OF SHIFT Give endorsement to incoming nurse, client is in the room, a/o x4 , she presents with anxious mood, flat affect. Nurse Practitioner Janel at bedside performing a R tight I&D for abscess. PRN Toradol x 2 for pain, first noted effective, last incoming nurse to reassess. Client was compliant with 2/3 of group therapy. Adequate intake and output. She completed 6 day Valium modified taper and 4 day Subutex, tolerated well. Last COWS 2/ CIWA 2. Client is a 26-year old, female, admitted for Xanax, Heroin, and Methamphetamine withdrawal. Allergies to Ceftriaxone and Ondansetron, Regular Diet, Full Code. Soil dressing, intact to left F/A, S/P I&D (05/02/17) of abscess. Right outer thigh c/ intact abscess with warm moist towel and disposable heat pack available PRN, she is on Po antibiotic Clindamycin Hcl 300mg TID 3/7 x days and Bactrim DS 1 Tab Q12H 6/7 x days for infection, tolerating well with no ASE. Client reports hx of withdrawal induced seizures (2012), she is on seizure precautions.
[2017-05-04 20:00] VITALS: BP 117/73
--- NOTE | 2017-05-04 20:00 | NUR ---
Start of Shift Pt is a 26 year old male admitted for Opiate/Benzo dependence, placed on Subutex and Valium taper, completed. Pt reported using Heroin IV 1.5g 2g/daily, meth (smoke) hit or two and Xanax PO 10 -15mg/daily. PMH: Chronic Pancreatitis, anxiety and insomnia. Allergies to ceftriaxone, ondansetron. I &D performed on left forearm, S/P I&D of abscess and I&D on right outer thigh, wound packed, no bleeding noted. Pt reports body aches, skin flushed/noted with moderate sweat. Respirations even/unlabored, denies SOB/chest pain, denies n/v/d, bowel sounds active x4, abdomen soft. Pt is scheduled for discharge tomorrow. Safety measures in place, call light within reach, side rails up x2, bed locked and in low position. Will continue to monitor.
[2017-05-04] MEDS ORDERED: diphenhydrAMINE 2% 28.4 GM CREAM TP PRN (20:15)
[2017-05-04] MEDS: QUETIAPINE FUMARATE 100 MG TABLET PO SCH (20:35)
--- NOTE | 2017-05-04 20:35 | NUR ---
PRN Administration Baclofen 20mg PRN administered for reports of body aches, rated 7-8/10. Safety measures in place, will continue to monitor.
[2017-05-04] MEDS: [UNRECOGNIZED DRUG - MIXTURE] PO SCH (20:40)
--- NOTE | 2017-05-04 21:35 | NUR ---
PRN Reassessment Upon reassessment, pt reports subsiding body aches. Needs met, safety measures in place, will continue to monitor.
[2017-05-05] VITALS: BP 115/57
--- NOTE | 2017-05-05 | NUR ---
Vital Signs BP 115/57, pulse 86, resp 16, Spo2 96% room air, temp 98.1 no pain 0/10 CIWA/COWS deferred d/t pt sleeping - to assess while pt is awake as ordered. Safety measures in place. Will continue to monitor.
--- NOTE | 2017-05-05 04:00 | NUR ---
Pt refused to be woken up for 0400 Vital Signs COWS/CIWA Deferred d/t pt sleeping to assess while pt is awake as ordered. Respirations even/unlabored, no s/s of acute distress noted. Safety measures in place, will continue to monitor.
--- NOTE | 2017-05-05 07:00 | NUR ---
End of Shift Pt is a 26 year old male admitted for Opiate/Benzo dependence, placed on subutex and Valium taper, completed. Pt reported using Heroin IV 1.5g 2g/daily, meth (smoke) hit or two and Xanax PO 10 -15mg/daily. PMH: Chronic Pancreatitis, anxiety and insomnia. Allergies to ceftriaxone, ondansetron. I &D performed on left forearm, S/P I&D of abscess and I&D on right outer thigh, wound packed, no bleeding noted. During shift, Pt reported body aches, skin flushed/noted with moderate sweat medications administered, along with Baclofen 20mg PRN administered, effective as reported per pt. Pt slept for 8 hours, intake of 1000 ml PO, voids x2 and stool x0. Pt is scheduled for discharge today. Safety measures in place, call light within reach, side rails up x2, bed locked and in low position. Endorsed to day shift nurse.
--- NOTE | 2017-05-05 07:01 | NUR ---
Start of Shift Notes: Received patient in her room. Alert and oriented x 4. Verbally responsive. Able to make need known. Respirations even and unlabored. No SOB noted. Skin warm and dry to touch. Abdomen soft and non-distended with (+) BS in all 4 quadrants. No complains of N/V/D or constipation noted. Bladder non-distended. No complains of bladder pain or discomfort. Voids independently. Ambulatory ad killian with steady gait. Patient is a 26 year old female admitted for opiate, methamphetamine and BZO dependence who has completed her 4-day Subutex and modified Valium taper as ordered. Has past medical hx of chronic pancreatitis, anxiety and insomnia. Has allergies to Rocephin and Zofran. NKA. FULL CODE. Regular diet. On fall and seizure precautions. Patient will be discharging today. Educated patient on the discharge process and her morning medication regimen. Patient verbalized good understanding. Will cotninue to monitor closely.
[2017-05-05 08:00] VITALS: BP 116/60
[2017-05-05] MEDS: SULFAMETH/TRIMETH 800/160 MG TABLET PO SCH (08:42)
[2017-05-05] MEDS: MULTIVITAMINS,THERAPEUTIC TABLET PO SCH (08:43)
[2017-05-05] MEDS: GABAPENTIN 300 MG CAPSULE PO SCH (08:43)
[2017-05-05] MEDS: LACTOBACILLUS RHAMNOSUS GG 1 EACH CAPSULE PO SCH (08:43)
[2017-05-05] MEDS: CLINDAMYCIN HCL 300 MG CAPSULE PO SCH (08:43)
[2017-05-05] MEDS: DICYCLOMINE HCL 20 MG TABLET PO SCH (08:43)
--- NOTE | 2017-05-05 08:59 | NUR ---
Discharged: Patient left the unit at this time. Educated patient on the discharge instructions. Included in her discharge packet was a copy of her CXR, prescriptions,, discharge paperwork and home meds. Patient refused to have her picture taken and refused to have treatment rendered to her I&D sites. Notifed Joan, PATIENT SUPPORT ASSISTANT and per Joan, do not remove dressings. Patient was escorted off the unit to be discharged home. Patient verbalized good understanding of all teachings. No s./s of withdrawal noted. VS stable.
== END 2017-05-05 08:59 | disposition home or self-care (01) | DRG 895 ==
LOC: SRC 04-28 10:14
PROVIDERS: ADMIT Internal Medicine; ATTEND Internal Medicine
PROC: HZ2ZZZZ Detoxification Services for Substance Abuse Treatment (ICD-10-PCS; principal; 2017-04-28)
PROC: HZ41ZZZ Group Counseling for Substance Abuse Treatment, Behavioral (ICD-10-PCS; 2017-05-01)
PROC: HZ31ZZZ Individual Counseling for Substance Abuse Treatment, Behavioral (ICD-10-PCS; 2017-05-01)
PROC: 0H9EXZZ Drainage of Left Lower Arm Skin, External Approach (ICD-10-PCS; 2017-05-02)
PROC: 0H9HXZZ Drainage of Right Upper Leg Skin, External Approach (ICD-10-PCS; 2017-05-04)
DX: F11.23 Opioid dependence with withdrawal (principal); L02.414 Cutaneous abscess of left upper limb; L02.415 Cutaneous abscess of right lower limb; L03.115 Cellulitis of right lower limb; E87.2 Acidosis; F13.230 Sedative, hypnotic or anxiolytic dependence with withdrawal, uncomplicated; F31.9 Bipolar disorder, unspecified; F41.9 Anxiety disorder, unspecified; F12.10 Cannabis abuse, uncomplicated; F15.10 Other stimulant abuse, uncomplicated; S51.032S Puncture wound without foreign body of left elbow, sequela; S71.131S Puncture wound without foreign body, right thigh, sequela; X78.8XXS Intentional self-harm by other sharp object, sequela; Z88.8 Allergy status to other drugs, medicaments and biological substances; Z88.1 Allergy status to other antibiotic agents; E87.6 Hypokalemia; F17.210 Nicotine dependence, cigarettes, uncomplicated; G47.00 Insomnia, unspecified; I15.9 Secondary hypertension, unspecified; D64.9 Anemia, unspecified; E83.39 Other disorders of phosphorus metabolism; R74.0 Nonspecific elevation of levels of transaminase and lactic acid dehydrogenase [LDH]
CPT/HCPCS: 36415; 70030-TC; 71010; 76881; 80307; 80324; 80346; 80349; 80361; 83735; 84100; 84443; 84703; 85025; 86580; 86592; 86705; 86803; 87340; 87806; G0480; J1885; J2550; J3490; Q0163